=== PATIENT | male | born 1975 | race Hispanic/Latino ===

== ENCOUNTER 2017-01-31 07:19 | Inpatient (IN) | payer OTHER, MEDICAID ==
[2017-01-31] MEDS ORDERED: Adacel (T-DAP) 0.5 ML VIAL ONE (07:29)
[2017-01-31] MEDS ORDERED: CEFAZOLIN/Water 2 GM/20 ML SYRINGE ONE (07:29)
[2017-01-31] MEDS ORDERED: Propofol 1,000 MG/100 ML VIAL IV ONE ×2 (07:34→08:30)
[2017-01-31 07:39] LABS: #Basophils 0.1 thou/uL (0.0-0.2); #Eosinphils 0.2 thou/uL (0.0-0.7); #Monocytes 0.5 thou/uL (0.11-0.59); #Neutrophils 9.1 thou/uL (1.40-6.50); %Eosinophils 1.5 % (0.0-10.0); %Lymphocytes 16.4 % (21.0-51.0); %Monocytes 4.5 % (0.0-10.0); %Neutrophils 76.6 % (42.0-75.0); Hemoglobin 15.5 g/dL (14.0-18.0); Mean Corpuscular HGB CONC 36.6 g/dL (32.0-36.0); Mean Corpuscular Hemoglobin 34.9 pg (27.0-31.0); Mean Corpuscular Volume 95.4 fl (80.0-94.0); Mean Platelet Volume 6.2 fL (7.4-10.4); Platelet Count 289 thou/uL (130-400); RBC Distribution Width 11.1 % (11.5-14.5); Red Blood Cell (RBC) Count 4.43 mill/uL (4.70-6.10); White Blood Cell (WBC) Count 11.9 thou/uL (4.8-10.8)
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
[2017-01-31 07:52] LABS: INR-International Normal Ratio 1.1; Prothrombin Time 14.6 SEC (12.0-14.7)
[2017-01-31 07:53] LABS: PTT 25.3 SEC (22.9-36.1)
[2017-01-31 07:55] LABS: ALT (SGPT) 40 U/L (8-55); AST (SGOT) 53 U/L (5-34); Albumin 3.9 g/dL (3.5-5.0); Alkaline Phosphatase 81 U/L (40-150); Anion Gap 17 mmol/L (10-20); BUN (Urea Nitrogen) 8 mg/dL (8.9-20.6); Bilirubin, Total 1.1 mg/dL (0.2-1.2); Calc. Creatinine Clearance 0 mL/min (70-130); Calcium 8.4 mg/dL (7.8-10.44); Carbon Dioxide 15 mmol/L (22-29); Chloride 106 mmol/L (98-107); Estimated GFR-MDRD Greater than 90; Globulin 3.1 g/dL (2.4-3.5); Lipase 25 U/L (8-78); Potassium 3.7 mmol/L (3.5-5.1); Sodium 134 mmol/L (136-145)
[2017-01-31 07:57] LABS: Glucose 182 mg/dL (70-105)
[2017-01-31] MEDS ORDERED: Fentanyl 20 MCG/ML 250 ML ONE (08:49)
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
[2017-01-31] MEDS ORDERED: TETANUS AND DIPHTHERIA TOX/PF 0.5 ML DISP.SYRIN IM ONE (08:51)
[2017-01-31] MEDS ORDERED: Dextrose 50% Abboject 50 ML SYRINGE SLOW IVP PRN (08:51)
[2017-01-31] MEDS ORDERED: Dextrose 5% in Water 1,000 ML IV PRN (08:51)
[2017-01-31] MEDS ORDERED: Ondansetron HCl/PF 4 MG/2 ML Vial IVP PRN (08:51)
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
[2017-01-31 09:04] LABS: Base Excess (BEa) -6.1 mEq/L (0 (+/-) 2.5); CO2 Tension 31.3 mmHg (35.0-45.0); Calcium, Ionized 1.1 mmol/L (1.12-1.30); Hematocrit-ABG 37.3 % (42.0-52.0); Hemoglobin (Hb) 12.4 g/dL (14.0-18.0); O2 Tension (PaO2) 129.2 mmHg (80.0-100.0); Puncture Site RB; pH, Arterial 7.38 (7.35-7.45)
[2017-01-31 09:05] LABS: ALV-art Gradient 24.995 (0-20)
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
[2017-01-31] MEDS ORDERED: Lidocaine 1% (PF) 30 ML VIAL ONE (09:20)
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
[2017-01-31] MEDS ORDERED: Sedation Protocol FS ONE (09:50)
[2017-01-31] MEDS ORDERED: Albumin 5% 500 ML ONE (09:51)
[2017-01-31] MEDS ORDERED: Fentanyl 20 MCG/ML 250 ML IVPB SCH (10:00)
[2017-01-31] MEDS ORDERED: DISCONTINUE PREVIOUS NARCOTIC PAIN MEDICATIONS AND BENZODIAZEPINES FS SCH (10:00)
[2017-01-31] MEDS ORDERED: Lorazepam 2 MG/ML VIAL SLOW IVP PRN (10:00)
[2017-01-31] MEDS: HumaLOG 300 UNITS/3 ML VIAL SC PRN (13:29)
[2017-01-31] MEDS: Famotidine/PF 20 mg/2ml Vial SLOW IVP SCH ×2 (13:29→20:30)
[2017-01-31] MEDS: Sodium Chloride 0.9% 1,000 ML IV SCH (13:35)
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
--- NOTE | 2017-01-31 15:34 | MRI ---
MRI CERVICAL SPINE WITHOUT IV CONTRAST: Date: 01/31/17 Multiplanar, multisequential images of cervical spine obtained. HISTORY: CT scan on 01/31/17 described fracture of the inferior facet on the left at C1. FINDINGS: The cervical vertebra show normal height and alignment on MRI. The disc spaces are normally maintain ed. There is no evidence of edema within the cervical vertebra below C1. Evaluation of C1 shows some minimal changes of edema along the lateral mass of C1 on the left. The subtle signal change may or may not be significant. There is no evidence of edema within the surrounding ligaments. Anterior longitudinal ligament, post erior longitudinal ligament, and interspinous ligaments are unremarkable. No edema. No edema in the spinous processes identified. There is no evidence of disc bulge or disc protrusion. The cervical cord signal is normal. IMPRESSION: 1. Questionable signal changes in the lateral mass of C1 on the left at the site of the previously described fracture. 2. No other evidence of osseous edema. No evidence of ligamentous or soft tissue edema seen. Cervic al spine otherwise unremarkable. POS: [facility]
[2017-01-31] MEDS ORDERED: ISOVUE-370 76%-LOCM 1 ML ONE (15:41)
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
[2017-01-31 15:55] LABS: #Monocytes 0.9 thou/uL (0.11-0.59); #Neutrophils 10.2 thou/uL (1.40-6.50); %Basophils 0.3 % (0.0-1.0); %Eosinophils 0.1 % (0.0-10.0); %Lymphocytes 8.5 % (21.0-51.0); %Monocytes 7.3 % (0.0-10.0); %Neutrophils 83.8 % (42.0-75.0); Hemoglobin 11.1 g/dL (14.0-18.0); Mean Corpuscular HGB CONC 35.4 g/dL (32.0-36.0); Mean Corpuscular Hemoglobin 34.3 pg (27.0-31.0); Mean Corpuscular Volume 97.1 fl (80.0-94.0); Mean Platelet Volume 6.4 fL (7.4-10.4); Platelet Count 220 thou/uL (130-400); RBC Distribution Width 11.1 % (11.5-14.5); Red Blood Cell (RBC) Count 3.23 mill/uL (4.70-6.10); White Blood Cell (WBC) Count 12.2 thou/uL (4.8-10.8)
[2017-01-31 16:03] LABS: Anion Gap 16 mmol/L (10-20); BUN (Urea Nitrogen) 8 mg/dL (8.9-20.6); Calc. Creatinine Clearance 117 mL/min (70-130); Calcium 8.2 mg/dL (7.8-10.44); Carbon Dioxide 17 mmol/L (22-29); Chloride 113 mmol/L (98-107); Estimated GFR-MDRD Greater than 90; Glucose 101 mg/dL (70-105); Magnesium 2.1 mg/dL (1.6-2.6); Phosphorus 2.8 mg/dL (2.3-4.7); Potassium 3.9 mmol/L (3.5-5.1); Sodium 142 mmol/L (136-145)
[2017-01-31] MEDS ORDERED: Acetaminophen 325 MG/10.15 ML UDCUP PO PRN (16:59)
[2017-01-31] MEDS: Cefepime 2 GM, Syringe 2.5 ML in Sterile Water 10 ML SLOW IVP SCH (18:09)
[2017-01-31] MEDS: Vancomycin HCl 1 GM in Premix Bag 1 BAG IVPB SCH (20:30)
[2017-01-31] MEDS: Acetaminophen 650 MG/20.3 ML UDCUP PO PRN (20:31)
[2017-01-31] MEDS ORDERED: FLU VACC QS2017-18 36 mo. & older 0.5 ML SYRINGE IM ONE (21:00)
[2017-01-31] MEDS ORDERED: Cefepime 2 GM in Sodium Chloride 0.9% 100 ML IVPB SCH (21:00)
[2017-02-01] MEDS: Vancomycin HCl 1 GM in Premix Bag 1 BAG IVPB SCH ×3 (03:32→21:15)
[2017-02-01] MEDS: Acetaminophen 650 MG/20.3 ML UDCUP PO PRN ×3 (03:40→22:06)
[2017-02-01] MEDS: Sodium Chloride 0.9% 1,000 ML IV SCH (03:40)
[2017-02-01 04:43] LABS: #Basophils 0.1 thou/uL (0.0-0.2); #Lymphocytes 1.7 thou/uL (1.20-3.40); #Monocytes 0.8 thou/uL (0.11-0.59); #Neutrophils 4.8 thou/uL (1.40-6.50); %Basophils 0.8 % (0.0-1.0); %Eosinophils 0.4 % (0.0-10.0); %Lymphocytes 22.4 % (21.0-51.0); %Monocytes 11.1 % (0.0-10.0); %Neutrophils 65.3 % (42.0-75.0); Mean Corpuscular HGB CONC 35.4 g/dL (32.0-36.0); Mean Corpuscular Hemoglobin 34.2 pg (27.0-31.0); Mean Corpuscular Volume 96.6 fl (80.0-94.0); Mean Platelet Volume 6.6 fL (7.4-10.4); Platelet Count 165 thou/uL (130-400); Red Blood Cell (RBC) Count 2.62 mill/uL (4.70-6.10); White Blood Cell (WBC) Count 7.4 thou/uL (4.8-10.8)
[2017-02-01 05:14] LABS: ALT (SGPT) 28 U/L (8-55); AST (SGOT) 58 U/L (5-34); Albumin 3.5 g/dL (3.5-5.0); Alkaline Phosphatase 38 U/L (40-150); Anion Gap 12 mmol/L (10-20); BUN (Urea Nitrogen) 11 mg/dL (8.9-20.6); Bilirubin, Total 1.4 mg/dL (0.2-1.2); Calc. Creatinine Clearance 105 mL/min (70-130); Calcium 7.9 mg/dL (7.8-10.44); Carbon Dioxide 20 mmol/L (22-29); Chloride 112 mmol/L (98-107); Estimated GFR-MDRD Greater than 90; Globulin 2.2 g/dL (2.4-3.5); Glucose 115 mg/dL (70-105); Phosphorus 3.5 mg/dL (2.3-4.7); Potassium 3.4 mmol/L (3.5-5.1); Protein, Total 5.7 g/dL (6.0-8.3); Sodium 141 mmol/L (136-145)
[2017-02-01] MEDS: Cefepime 2 GM, Syringe 2.5 ML in Sterile Water 10 ML SLOW IVP SCH ×3 (05:19→22:05)
[2017-02-01] MEDS ORDERED: Potassium Chloride 40 MEQ in Sodium Chloride 0.9% 500 ML IVPB SCH (07:00)
[2017-02-01] MEDS: Lactated Ringer's 1,000 ML IV SCH ×2 (07:46→21:14)
[2017-02-01] MEDS: Pantoprazole 40 MG VIAL IVP SCH (09:16)
--- NOTE | 2017-02-01 09:32 | PRG ---
DATE OF SERVICE: 02/01/2017 SERVICE: Pulmonary Medicine. INTERVAL HISTORY: The patient is doing fine from a respiratory standpoint. He is on room air. Otherwise, there have been no events overnight. His neurologic status has been essentially stable. Neurosurgery is following. The patient is going down for surgery today. PHYSICAL EXAMINATION: VITAL SIGNS: T-max 102.5 with current temperature of 101.4, pulse 117, blood pressure 104/70, respirations 20, saturation 100% on 21% FIO2 and PEEP of 5. GENERAL: The patient is intubated and sedated. HEENT: Normocephalic. There are multiple trauma present. Sclerae white. There is conjunctival hemorrhage. Mucosa is pink otherwise. Oral and nasal mucosa is moist. HEART: Tachycardic. Regular. ABDOMEN: Soft, nontender, nondistended, bowel sounds positive. LUNGS: Good air entry bilaterally with no prolonged expiratory phase, wheezing , rhonchi, or crackles. MUSCULOSKELETAL: No cyanosis or clubbing. There is no pitting in the bilateral lower extremities. NEUROLOGIC: Unchanged compared to yesterday. LABORATORY DATA: WBC 7.4, hemoglobin 9.0, platelets 165,000. INR 1.1. Potassium 3.4, which has been replaced. Basic metabolic profile is otherwise unremarkable. Total bilirubin 1.4 and gently up trending. Magnesium and phosphorus fall within normal limits. AST and ALT are roughly stable. Blood cultures x2 are unremarkable. IMAGING: Chest x-ray demonstrates stable lines and tubes. There is no acute cardiopulmonary abnormality identified. Endotracheal tube remains in good position with intracatheter coursing low level of the diaphragm. ASSESSMENT: 1. Respiratory failure secondary to inability to protect airway. 2. Subarachnoid hemorrhage. 3. Subdural hematomas. 4. Multiple basilar fractures with pneumocephalus. 5. Pulmonary contusion, minimal. 6. Possible globus injury. PLAN: We will continue to follow neurologic status very closely. If he decompensates, stat CT scan will be considered as there is ventricular extension of the blood from the parenchyma. Pulmonary/Critical Care will continue to follow. I have made some small adjustments to the ventilator to maximize comfort and minimize dyssynchrony: I will initiate tube feeds after surgery today. Once his neurologic status allows, extubation will be considered. In the meantime, we will minimize sedation. [facility]ENT[facility]assy
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
[2017-02-01] MEDS ORDERED: Midazolam HCl 2 mg/2 ml Vial ONE (13:14)
[2017-02-01] MEDS ORDERED: Fentanyl 100 MCG/2 ML VIAL ONE (13:14)
[2017-02-01] MEDS ORDERED: Oxymetazoline HCl 0.05% ( 15 ML ) ONE (13:20)
[2017-02-01] MEDS ORDERED: Lidocaine 1% w/Epinephrine 1:200K 30 ML VIAL ONE (13:20)
[2017-02-01] MEDS ORDERED: Vecuronium 10 MG VIAL ONE (13:52)
[2017-02-01] MEDS ORDERED: PHENYLEPHRINE-NS 100 MCG/ML 10 ML SYRINGE ONE (13:52)
[2017-02-01] MEDS ORDERED: ePHEDrine/0.9% NaCl/PF SYRINGE 50 mg/10 ml ONE (13:52)
[2017-02-01] MEDS ORDERED: Lidocaine 2% w/Epi 1:100K 1.7 ML VIAL (Dental) ONE (13:57)
[2017-02-01] MEDS ORDERED: Chlorhexidine Gluconate 15 ML UDCUP SSP ONE (14:00)
[2017-02-01] MEDS ORDERED: Phenylephrine 10 MG/NS 250 ML 250 ML ONE (14:34)
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
[2017-02-01] MEDS ORDERED: Gentamicin Ophth Ointment 0.3% 3.5 gm Tube ONE (15:35)
[2017-02-01] MEDS ORDERED: Bacitracin Zinc Ointment 30 gm TUBE ONE (15:35)
[2017-02-01] MEDS ORDERED: Phenylephrine 10 MG/NS 250 ML 250 ML IVPB SCH (17:45)
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
[2017-02-01 19:41] LABS: Vancomycin, Trough 18.1 ug/mL
[2017-02-01] MEDS: HumaLOG 300 UNITS/3 ML VIAL SC PRN (22:18)
[2017-02-02 04:38] LABS: #Eosinphils 0.1 thou/uL (0.0-0.7); #Lymphocytes 1.3 thou/uL (1.20-3.40); #Monocytes 0.7 thou/uL (0.11-0.59); #Neutrophils 4.8 thou/uL (1.40-6.50); %Basophils 0.7 % (0.0-1.0); %Eosinophils 1.9 % (0.0-10.0); %Lymphocytes 18.4 % (21.0-51.0); %Monocytes 9.5 % (0.0-10.0); %Neutrophils 69.5 % (42.0-75.0); Hemoglobin 7.8 g/dL (14.0-18.0); Mean Corpuscular HGB CONC 34.5 g/dL (32.0-36.0); Mean Corpuscular Volume 98.5 fl (80.0-94.0); Mean Platelet Volume 6.5 fL (7.4-10.4); Platelet Count 128 thou/uL (130-400); RBC Distribution Width 10.5 % (11.5-14.5); Red Blood Cell (RBC) Count 2.29 mill/uL (4.70-6.10); White Blood Cell (WBC) Count 6.9 thou/uL (4.8-10.8)
[2017-02-02] MEDS: Lactated Ringer's 1,000 ML IV SCH (04:41)
[2017-02-02] MEDS: Vancomycin HCl 1 GM in Premix Bag 1 BAG IVPB SCH ×3 (04:41→20:49)
[2017-02-02] MEDS: Propofol 1,000 MG/100 ML VIAL IV PRN (04:44)
[2017-02-02 04:50] LABS: Anion Gap 13 mmol/L (10-20); BUN (Urea Nitrogen) 8 mg/dL (8.9-20.6); Calc. Creatinine Clearance 115 mL/min (70-130); Calcium 7.7 mg/dL (7.8-10.44); Carbon Dioxide 20 mmol/L (22-29); Chloride 114 mmol/L (98-107); Estimated GFR-MDRD Greater than 90; Glucose 106 mg/dL (70-105); Potassium 3.9 mmol/L (3.5-5.1); Sodium 143 mmol/L (136-145)
[2017-02-02] MEDS: Chlorhexidine Gluconate 15 ML UDCUP SSP SCH ×2 (09:02→20:50)
[2017-02-02] MEDS: Pantoprazole 40 MG VIAL IVP SCH (09:02)
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
[2017-02-02] MEDS: Cefepime 2 GM, Syringe 2.5 ML in Sterile Water 10 ML SLOW IVP SCH ×2 (10:57→20:49)
[2017-02-02] MEDS: Sodium Chloride 0.45% 1,000 ML IV SCH (10:58)
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
[2017-02-02] MEDS: Acetaminophen 650 MG/20.3 ML UDCUP PO PRN ×2 (17:33→23:07)
[2017-02-02 19:23] LABS: Vancomycin, Trough 17.3 ug/mL
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
[2017-02-02] MEDS ORDERED: clonazePAM 0.5 MG TAB PER TUBE SCH (20:30)
[2017-02-02] MEDS: Gentamicin Ophth Ointment 0.3% 3.5 gm Tube EA EYE PRN (20:51)
[2017-02-02] MEDS: Bacitracin Zinc 1 Packet TOP PRN (21:04)
[2017-02-02] MEDS: HumaLOG 300 UNITS/3 ML VIAL SC PRN (23:32)
[2017-02-03] MEDS: Vancomycin HCl 1 GM in Premix Bag 1 BAG IVPB SCH ×3 (04:30→20:54)
[2017-02-03] MEDS: Sodium Chloride 0.45% 1,000 ML IV SCH (04:30)
[2017-02-03] MEDS: Propofol 1,000 MG/100 ML VIAL IV PRN ×3 (04:30→20:44)
[2017-02-03 05:00] LABS: Anion Gap 12 mmol/L (10-20); BUN (Urea Nitrogen) 7 mg/dL (8.9-20.6); Calc. Creatinine Clearance 124 mL/min (70-130); Calcium 8.3 mg/dL (7.8-10.44); Carbon Dioxide 22 mmol/L (22-29); Chloride 113 mmol/L (98-107); Estimated GFR-MDRD Greater than 90; Glucose 121 mg/dL (70-105); Potassium 3.5 mmol/L (3.5-5.1); Sodium 143 mmol/L (136-145)
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
[2017-02-03] MEDS: Acetaminophen 650 MG/20.3 ML UDCUP PO PRN ×3 (07:49→21:01)
[2017-02-03 08:10] LABS: Bilirubin Negative (Negative); Blood, Urine Small (Negative); Clarity CLEAR (Clear); Glucose, Urine (Dipstick) Negative (Negative); Leukocyte Negative (Negative); Nitrite Negative (Negative); Protein, Urine (Dipstick) Negative (Neg-Trace); Specific Gravity, Urine 1.015 (1.002-1.036); Urobilinogen > or = 8.0 mg/dL (0.2-1.0)
[2017-02-03 08:12] LABS: Bacteria/HPF None Seen HPF (None Seen); Hyaline Casts/LPF 0-3 HYALINE CAST LPF (0-3 Hyaline); RBC/HPF 0-3 HPF (0-3); Squamous Epithelial None Seen HPF (0-3); WBC/HPF 0-3 HPF (0-3)
[2017-02-03] MEDS ORDERED: Bisacodyl 10 MG SUPP PR SCH (08:30)
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
[2017-02-03] MEDS: Pantoprazole 40 MG VIAL IVP SCH (09:09)
[2017-02-03] MEDS: Bacitracin Zinc 1 Packet TOP PRN (09:10)
[2017-02-03] MEDS: Chlorhexidine Gluconate 15 ML UDCUP SSP SCH ×2 (09:10→20:53)
[2017-02-03] MEDS: Gentamicin Ophth Ointment 0.3% 3.5 gm Tube EA EYE PRN (09:10)
[2017-02-03] MEDS: Cefepime 2 GM, Syringe 2.5 ML in Sterile Water 10 ML SLOW IVP SCH ×2 (09:11→23:44)
[2017-02-03] MEDS ORDERED: Potassium Chloride 40 MEQ in Sodium Chloride 0.9% 250 ML 250 ML IVPB SCH (09:15)
[2017-02-03] MEDS: Senokot S 8.6-50 MG TAB PO SCH ×2 (10:06→20:53)
[2017-02-03] MEDS: Polyethylene Glycol 3350 17 GM Packet PER TUBE SCH (10:06)
[2017-02-03] MEDS: HumaLOG 300 UNITS/3 ML VIAL SC PRN ×3 (10:46→22:20)
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
--- NOTE | 2017-02-03 19:03 | PRG ---
DATE OF SERVICE: 02/03/2017 SERVICE: Pulmonary Medicine. INTERVAL HISTORY: The patient is doing fine from a respiratory standpoint. Cardiovascular, he is intact. He cannot provide any additional elements of the history. Whenever we hold sedation, he moves his lower extremities spontaneously as well as right extremities. He does have a little less movement in the left upper extremity. That being said, he is not following any commands. I can safely extubate him because of his multiple cranial facial fractures. Reintubation could prove difficult. As such, he will remain in his condition for the next 48 hours. PHYSICAL EXAMINATION: VITAL SIGNS: T-max 101.1, pulse 125, blood pressure 140/72, respirations 16, saturation 100% on room air. GENERAL: The patient is intubated. He is on mild sedation, but otherwise, remains encephalopathic from his multiple head injuries. LUNGS: Decent air entry with no prolonged expiratory phase, wheezing, rhonchi or crackles. HEART: Regular. ABDOMEN: Soft, nontender, nondistended. Bowel sounds are positive. MUSCULOSKELETAL: No cyanosis or clubbing. There is no pitting in the bilateral lower extremities. LABORATORY DATA: Hemoglobin 8.0. Basic metabolic profile was essentially unremarkable with sodium of 143. Chloride 113. Creatinine 0.74 and roughly stable. One out of two blood cultures is growing micrococcus feces. ASSESSMENT: 1. Respiratory failure secondary to inability to protect airway. 2. Subarachnoid hemorrhage. 3. Subdural hematomas. 4. Intraparenchymal hemorrhage, multiple with intraventricular extension. 5. Multiple bibasilar fractures with pneumocephalus. 6. Pulmonary contusion, insignificant. 7. Possible globe injury of the left eye. PLAN: I will continue supportive care. I will keep him intubated for the next 48 hours. If he fails to make any neurological progression/improvement, tracheostomy will be considered. I will initiate Seroquel and Klonopin scheduled twice daily as well as nebulized medications. Critical care time: 30 minutes. MTDD
[2017-02-03] MEDS: clonazePAM 0.5 MG TAB PO SCH (20:53)
[2017-02-04] MEDS: Ibuprofen 100 MG/5 ML UDCUP PO PRN ×2 (02:14→15:38)
[2017-02-04 03:42] LABS: Vancomycin, Trough 14.7 ug/mL
[2017-02-04 03:45] LABS: Anion Gap 10 mmol/L (10-20); BUN (Urea Nitrogen) 8 mg/dL (8.9-20.6); Calc. Creatinine Clearance 134 mL/min (70-130); Calcium 8.2 mg/dL (7.8-10.44); Carbon Dioxide 22 mmol/L (22-29); Chloride 110 mmol/L (98-107); Estimated GFR-MDRD Greater than 90; Glucose 174 mg/dL (70-105); Magnesium 1.6 mg/dL (1.6-2.6); Phosphorus 2.8 mg/dL (2.3-4.7); Potassium 3.3 mmol/L (3.5-5.1); Sodium 139 mmol/L (136-145)
[2017-02-04] MEDS: Sodium Chloride 0.45% 1,000 ML IV SCH ×2 (03:59→23:03)
[2017-02-04] MEDS: Propofol 1,000 MG/100 ML VIAL IV PRN ×2 (04:13→17:26)
[2017-02-04] MEDS: HumaLOG 300 UNITS/3 ML VIAL SC PRN ×3 (04:14→22:16)
[2017-02-04] MEDS: Vancomycin HCl 1 GM in Premix Bag 1 BAG IVPB SCH (04:14)
[2017-02-04] MEDS ORDERED: Sodium Chloride 0.9% 15 ML NEB ONE (04:16)
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
[2017-02-04] MEDS ORDERED: Magnesium 2 GM/NS 0.9% 100 ML 2 GM in Premix Bag 1 BAG IVPB SCH (08:45)
[2017-02-04 08:49] LABS: #Eosinphils 0.3 thou/uL (0.0-0.7); #Lymphocytes 0.7 thou/uL (1.20-3.40); #Monocytes 0.3 thou/uL (0.11-0.59); #Neutrophils 2.4 thou/uL (1.40-6.50); %Basophils 0.2 % (0.0-1.0); %Eosinophils 7.4 % (0.0-10.0); %Monocytes 9.1 % (0.0-10.0); %Neutrophils 64.3 % (42.0-75.0); Mean Corpuscular Hemoglobin 33.5 pg (27.0-31.0); Mean Corpuscular Volume 95.8 fl (80.0-94.0); Mean Platelet Volume 6.6 fL (7.4-10.4); Platelet Count 176 thou/uL (130-400); RBC Distribution Width 10.8 % (11.5-14.5); Red Blood Cell (RBC) Count 2.08 mill/uL (4.70-6.10); White Blood Cell (WBC) Count 3.7 thou/uL (4.8-10.8)
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
[2017-02-04] MEDS: Acetaminophen 650 MG/20.3 ML UDCUP PO PRN ×3 (09:20→23:45)
[2017-02-04] MEDS: Pantoprazole 40 MG VIAL IVP SCH (09:21)
[2017-02-04] MEDS: clonazePAM 0.5 MG TAB PO SCH ×2 (09:21→20:52)
[2017-02-04] MEDS: Senokot S 8.6-50 MG TAB PO SCH ×2 (09:21→20:52)
[2017-02-04] MEDS: Polyethylene Glycol 3350 17 GM Packet PER TUBE SCH (09:22)
[2017-02-04] MEDS: Chlorhexidine Gluconate 15 ML UDCUP SSP SCH ×2 (09:22→20:52)
[2017-02-04] MEDS: Cefepime 2 GM, Syringe 2.5 ML in Sterile Water 10 ML SLOW IVP SCH ×2 (09:32→20:59)
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
[2017-02-04] MEDS: Gentamicin Ophth Ointment 0.3% 3.5 gm Tube EA EYE PRN (10:31)
[2017-02-04] MEDS: Bacitracin Zinc 1 Packet TOP PRN (10:31)
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
[2017-02-04] MEDS: Vancomycin HCl 1.25 GM in Sodium Chloride 0.9% 250 ML 250 ML IVPB SCH ×2 (11:35→19:42)
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
[2017-02-05] MEDS: Ibuprofen 100 MG/5 ML UDCUP PO PRN ×2 (01:11→14:39)
[2017-02-05] MEDS: Vancomycin HCl 1.25 GM in Sodium Chloride 0.9% 250 ML 250 ML IVPB SCH ×2 (03:36→13:33)
[2017-02-05] MEDS: Propofol 1,000 MG/100 ML VIAL IV PRN ×2 (03:43→14:16)
[2017-02-05] MEDS: HumaLOG 300 UNITS/3 ML VIAL SC PRN ×2 (03:43→22:34)
[2017-02-05 04:58] LABS: Anion Gap 12 mmol/L (10-20); BUN (Urea Nitrogen) 11 mg/dL (8.9-20.6); Calc. Creatinine Clearance 137 mL/min (70-130); Calcium 8.5 mg/dL (7.8-10.44); Carbon Dioxide 22 mmol/L (22-29); Chloride 108 mmol/L (98-107); Estimated GFR-MDRD Greater than 90; Glucose 161 mg/dL (70-105); Potassium 4.2 mmol/L (3.5-5.1); Sodium 138 mmol/L (136-145)
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
[2017-02-05] MEDS: Polyethylene Glycol 3350 17 GM Packet PER TUBE SCH (07:54)
[2017-02-05] MEDS: clonazePAM 0.5 MG TAB PO SCH ×2 (07:55→20:12)
[2017-02-05] MEDS: Pantoprazole 40 MG GRANULES PACKET PER TUBE SCH (07:55)
[2017-02-05] MEDS: Senokot S 8.6-50 MG TAB PO SCH ×2 (07:55→20:12)
[2017-02-05] MEDS: Chlorhexidine Gluconate 15 ML UDCUP SSP SCH ×2 (07:55→20:12)
[2017-02-05] MEDS: Cefepime 2 GM, Syringe 2.5 ML in Sterile Water 10 ML SLOW IVP SCH ×2 (07:57→20:12)
[2017-02-05] MEDS: Bacitracin Zinc 1 Packet TOP PRN (07:58)
[2017-02-05] MEDS: Gentamicin Ophth Ointment 0.3% 3.5 gm Tube EA EYE PRN (07:58)
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
[2017-02-05 12:34] LABS: Vancomycin, Trough 14.3 ug/mL
[2017-02-05] MEDS: Sodium Chloride 0.45% 1,000 ML IV SCH (14:58)
[2017-02-05] MEDS: Acetaminophen 650 MG/20.3 ML UDCUP PO PRN (16:33)
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
--- NOTE | 2017-02-05 18:05 | PRG ---
DATE OF SERVICE: 02/05/2017 Please see Raymundo Gagnon PA-C, note for details. Mr. Barclay is still very irritated when the sedation is weaned, he is going to require long-term airway support and protection given his significant head injury. My plan would be a tracheostomy and feeding tube placement tomorrow. Disposition will be d ifficult, given his status; however, tracheostomy, PEG tube will allow us to have more options for th at if something can be arranged.
[2017-02-05] MEDS: Vancomycin HCl 1.5 GM in Sodium Chloride 0.9% 250 ML 300 ML IVPB SCH (19:39)
[2017-02-06] MEDS: Propofol 1,000 MG/100 ML VIAL IV PRN (01:33)
[2017-02-06] MEDS: Sodium Chloride 0.45% 1,000 ML IV SCH ×2 (01:38→16:25)
[2017-02-06] MEDS: Vancomycin HCl 1.5 GM in Sodium Chloride 0.9% 250 ML 300 ML IVPB SCH ×3 (03:13→21:14)
[2017-02-06 04:45] LABS: #Basophils 0.1 thou/uL (0.0-0.2); #Eosinphils 0.3 thou/uL (0.0-0.7); #Lymphocytes 1.1 thou/uL (1.20-3.40); #Neutrophils 4.6 thou/uL (1.40-6.50); %Basophils 0.7 % (0.0-1.0); %Eosinophils 4.2 % (0.0-10.0); %Monocytes 14.7 % (0.0-10.0); %Neutrophils 65.4 % (42.0-75.0); Hemoglobin 7.2 g/dL (14.0-18.0); Mean Corpuscular HGB CONC 34.4 g/dL (32.0-36.0); Mean Corpuscular Hemoglobin 33.5 pg (27.0-31.0); Mean Corpuscular Volume 97.1 fl (80.0-94.0); Mean Platelet Volume 6.7 fL (7.4-10.4); Platelet Count 312 thou/uL (130-400); RBC Distribution Width 11.6 % (11.5-14.5); Red Blood Cell (RBC) Count 2.14 mill/uL (4.70-6.10); White Blood Cell (WBC) Count 7.1 thou/uL (4.8-10.8)
[2017-02-06 04:57] LABS: Anion Gap 14 mmol/L (10-20); BUN (Urea Nitrogen) 11 mg/dL (8.9-20.6); Calc. Creatinine Clearance 147 mL/min (70-130); Calcium 8.5 mg/dL (7.8-10.44); Carbon Dioxide 21 mmol/L (22-29); Chloride 105 mmol/L (98-107); Estimated GFR-MDRD Greater than 90; Glucose 117 mg/dL (70-105); Potassium 4.4 mmol/L (3.5-5.1); Sodium 136 mmol/L (136-145)
[2017-02-06] MEDS: Ibuprofen 100 MG/5 ML UDCUP PO PRN (06:17)
[2017-02-06] MEDS: Cefepime 2 GM, Syringe 2.5 ML in Sterile Water 10 ML SLOW IVP SCH ×2 (09:07→20:24)
[2017-02-06] MEDS: Chlorhexidine Gluconate 15 ML UDCUP SSP SCH ×2 (09:07→20:25)
[2017-02-06] MEDS ORDERED: Bupivacaine/Epinephrine 0.25% 30 ML VIAL ONE (09:40)
[2017-02-06] MEDS ORDERED: Midazolam HCl 5 mg/5 ml Vial ONE (09:41)
[2017-02-06] MEDS ORDERED: Fentanyl 250 MCG/5 ML VIAL ONE (09:41)
[2017-02-06] MEDS ORDERED: Promethazine HCl 25 MG/ML VIAL ONE (09:41)
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
[2017-02-06] MEDS ORDERED: Labetalol HCl 100 MG/20 ML SYR ONE (10:13)
[2017-02-06] MEDS ORDERED: Ondansetron HCl/PF 4 MG/2 ML Vial ONE (10:13)
[2017-02-06] MEDS ORDERED: PHENYLEPHRINE-NS 100 MCG/ML 10 ML SYRINGE ONE (10:13)
--- NOTE | 2017-02-06 10:25 | PRG ---
DATE OF SERVICE: 02/06/2017 SERVICE: Pulmonary Medicine. INTERVAL HISTORY: The patient is doing great from a respiratory standpoint. His heart is doing fine. He is a little tachycardic today. Otherwise, there has been no interval change to his condition. His neurologic status has yet to improve. He does require intermittent sedation, because he thrashes about the bed without it. That being said, during good long sedation holidays, he is not following any commands. He has some purposeful movements of the right upper extremity and bilateral lower extremities. That being said, he is still not moving that left arm nearly as much. PHYSICAL EXAMINATION: VITAL SIGNS: T-max 102.9, pulse 102, blood pressure 138/75, respirations 12, saturation 99% on 21% FiO2 and PEEP of 5. GENERAL: The patient is intubated and requires a little sedation, but he is still encephalopathic. LUNGS: Decent air entry with no prolonged expiratory phase, wheezing, rhonchi, or crackles. HEART: Normal rate, regular. ABDOMEN: Soft, nontender, nondistended. Bowel sounds positive. MUSCULOSKELETAL: No cyanosis or clubbing. There is no pitting in the bilateral lower extremities. NEUROLOGIC: Grossly nonfocal. GENITOURINARY: Cortes catheter in place. LABORATORY DATA: WBC 7.1, hemoglobin 7.2. Platelets 312,000. Basic metabolic profile is completely unremarkable. Glucose is 131. Vancomycin trough 14.3. Respiratory culture, urine culture, and 1/2 blood cultures is negative. The other blood culture is growing likely contamination. ASSESSMENT: 1. Respiratory failure, secondary to inability to protect airway. 2. Subarachnoid hemorrhage. 3. Subdural hematomas. 4. Intraparenchymal hemorrhage with small intraventricular extension. 5. Basilar fractures, previously resulting in pneumocephalus, which has resolved. PLAN: Pulmonary Critical Care will continue to follow while the patient remains in-house. We will continue supportive care. He can go down for a PEG tube and tracheostomy. For the time being, we will hold off on an IVC filter placement. The patient remains on room air. His heart remains strong, and my suspicion is he has got plenty of reserve if necessary for a small clot. In 1 week, we will be able to provide him with prophylactic anticoagulation. Critical care time: 30 minutes. [facility]
--- NOTE | 2017-02-06 12:13 | RAD ---
CHEST ONE VIEW: History: Tracheostomy replacement. Comparison: 02-04-17 FINDINGS: Tracheostomy tube is new and in good position. Lungs are hypoinflated. Cardiac silhouette and mediast inal contours are within normal limits. Enteric tube has been removed. IMPRESSION: Tracheostomy tube placement without complication. POS: FREDA
[2017-02-06] MEDS: Pantoprazole 40 MG GRANULES PACKET PER TUBE SCH (13:32)
[2017-02-06] MEDS: Senokot S 8.6-50 MG TAB PO SCH ×2 (13:32→20:25)
[2017-02-06] MEDS: Polyethylene Glycol 3350 17 GM Packet PER TUBE SCH (13:32)
[2017-02-06] MEDS: clonazePAM 0.5 MG TAB PO SCH ×2 (13:33→20:25)
[2017-02-06] MEDS: Bisacodyl 10 MG SUPP PR SCH (13:33)
[2017-02-06] MEDS: Fentanyl 100 MCG/2 ML VIAL SLOW IVP PRN ×3 (14:53→19:43)
--- NOTE | 2017-02-06 15:04 | PRG ---
DATE OF SERVICE: 02/06/2017 SUBJECTIVE: I came to see Mr. Barclay today. He is down getting his tracheostomy and PEG tube place ment. I have recommended IVC filter as I do not think it is safe to anticoagulate him with pharmacol ogic DVT prophylaxis given the size of his hemorrhagic contusions.
[2017-02-06] MEDS: Acetaminophen 650 MG/20.3 ML UDCUP PO PRN (16:27)
[2017-02-06] MEDS: Bacitracin Zinc 1 Packet TOP PRN (16:27)
[2017-02-06 21:01] LABS: Vancomycin, Trough 17.5 ug/mL
[2017-02-07] MEDS: Acetaminophen 650 MG/20.3 ML UDCUP PO PRN ×2 (00:04→12:21)
[2017-02-07] MEDS: Ibuprofen 100 MG/5 ML UDCUP PO PRN ×2 (00:08→12:55)
[2017-02-07] MEDS: Vancomycin HCl 1.5 GM in Sodium Chloride 0.9% 250 ML 300 ML IVPB SCH ×3 (03:10→20:31)
[2017-02-07] MEDS: Fentanyl 100 MCG/2 ML VIAL SLOW IVP PRN (06:14)
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
[2017-02-07] MEDS: Bisacodyl 10 MG SUPP PR SCH (08:49)
[2017-02-07] MEDS: Pantoprazole 40 MG GRANULES PACKET PER TUBE SCH (08:51)
[2017-02-07] MEDS: Chlorhexidine Gluconate 15 ML UDCUP SSP SCH ×2 (08:51→20:33)
[2017-02-07] MEDS: Polyethylene Glycol 3350 17 GM Packet PER TUBE SCH (08:51)
[2017-02-07] MEDS: Senokot S 8.6-50 MG TAB PO SCH (08:51)
[2017-02-07] MEDS: clonazePAM 0.5 MG TAB PO SCH ×2 (08:52→20:33)
[2017-02-07] MEDS: Cefepime 2 GM, Syringe 2.5 ML in Sterile Water 10 ML SLOW IVP SCH ×2 (08:57→21:26)
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
[2017-02-07] MEDS: Sodium Chloride 0.45% 1,000 ML IV SCH (09:59)
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
[2017-02-07] MEDS ORDERED: levETIRAcetam In NaCl (Iso-Os) 1,000 MG in Premix Bag 1 BAG IVPB SCH ×2 (16:15)
--- NOTE | 2017-02-07 16:37 | PRG ---
DATE OF SERVICE: 02/07/2017 SUBJECTIVE: No change in Mr. Barclay' status post trach and PEG yesterday. OBJECTIVE: VITAL SIGNS: His pulse remains fast at times in the low 100s, blood pressure 150/77. He remains on the ventilator. ABDOMEN: Soft. PEG tube site is clear, no bleeding from the trachea. ASSESSMENT: Respiratory failure secondary to the traumatic brain injury. PLAN: We will continue to follow and appreciate Dr. Mendoza's assistance with managing his ventilato r.
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
[2017-02-07 19:49] LABS: Vancomycin, Trough 21.6 ug/mL
[2017-02-08] MEDS: Acetaminophen 650 MG/20.3 ML UDCUP PO PRN ×2 (00:50→16:58)
[2017-02-08] MEDS: Ibuprofen 100 MG/5 ML UDCUP PO PRN ×3 (00:50→16:58)
[2017-02-08] MEDS: Vancomycin HCl 1.25 GM in Sodium Chloride 0.9% 250 ML 250 ML IVPB SCH ×3 (04:05→21:25)
[2017-02-08] MEDS: Cefepime 2 GM, Syringe 2.5 ML in Sterile Water 10 ML SLOW IVP SCH ×2 (08:40→22:32)
[2017-02-08] MEDS: Scopolamine 1.5 mg/72 hour Patch TD SCH (08:40)
[2017-02-08] MEDS: Chlorhexidine Gluconate 15 ML UDCUP SSP SCH ×2 (08:40→21:25)
[2017-02-08] MEDS: Pantoprazole 40 MG GRANULES PACKET PER TUBE SCH (08:40)
[2017-02-08] MEDS: Polyethylene Glycol 3350 17 GM Packet PER TUBE SCH (08:41)
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
[2017-02-08] MEDS ORDERED: Dextrose 5% in Water 1,000 ML IV PRN (17:47)
[2017-02-08] MEDS ORDERED: Dextrose 50% Abboject 50 ML SYRINGE SLOW IVP PRN (17:47)
[2017-02-08] MEDS ORDERED: Bacitracin Zinc 1 Packet TOP SCH (18:45)
[2017-02-08] MEDS: clonazePAM 0.5 MG TAB PO SCH (21:25)
[2017-02-09] MEDS: Fentanyl 100 MCG/2 ML VIAL SLOW IVP PRN (01:19)
[2017-02-09] MEDS: Ibuprofen 100 MG/5 ML UDCUP PO PRN ×3 (01:27→20:08)
[2017-02-09] MEDS: Acetaminophen 650 MG/20.3 ML UDCUP PO PRN ×2 (01:27→09:08)
[2017-02-09] MEDS ORDERED: Acetaminophen 650 MG/20.3 ML UDCUP PER TUBE SCH (02:45)
[2017-02-09 03:35] LABS: Anion Gap 11 mmol/L (10-20); BUN (Urea Nitrogen) 15 mg/dL (8.9-20.6); Calc. Creatinine Clearance 141 mL/min (70-130); Calcium 8.3 mg/dL (7.8-10.44); Carbon Dioxide 19 mmol/L (22-29); Chloride 105 mmol/L (98-107); Estimated GFR-MDRD Greater than 90; Glucose 236 mg/dL (70-105); Magnesium 1.7 mg/dL (1.6-2.6); Phosphorus 2.1 mg/dL (2.3-4.7); Potassium 3.2 mmol/L (3.5-5.1); Sodium 132 mmol/L (136-145); Vancomycin, Trough 18.1 ug/mL
[2017-02-09 03:49] LABS: #Basophils 0.1 thou/uL (0.0-0.2); #Eosinphils 0.2 thou/uL (0.0-0.7); #Lymphocytes 0.9 thou/uL (1.20-3.40); #Monocytes 0.8 thou/uL (0.11-0.59); #Neutrophils 6.1 thou/uL (1.40-6.50); %Basophils 0.7 % (0.0-1.0); %Eosinophils 3.1 % (0.0-10.0); %Lymphocytes 11.1 % (21.0-51.0); %Monocytes 9.5 % (0.0-10.0); %Neutrophils 75.7 % (42.0-75.0); Hemoglobin 6.7 g/dL (14.0-18.0); Mean Corpuscular Hemoglobin 31.8 pg (27.0-31.0); Mean Corpuscular Volume 93.5 fl (80.0-94.0); Mean Platelet Volume 6.3 fL (7.4-10.4); Platelet Count 568 thou/uL (130-400); RBC Distribution Width 11.8 % (11.5-14.5); Red Blood Cell (RBC) Count 2.11 mill/uL (4.70-6.10)
[2017-02-09] MEDS ORDERED: Potassium Phosphate 30 MMOL in Sodium Chloride 0.9% 500 ML IVPB SCH (04:00)
[2017-02-09] MEDS ORDERED: Magnesium 2 GM/NS 0.9% 100 ML 2 GM in Premix Bag 1 BAG IVPB SCH (04:00)
[2017-02-09] MEDS: Vancomycin HCl 1.25 GM in Sodium Chloride 0.9% 250 ML 250 ML IVPB SCH ×3 (04:30→20:09)
[2017-02-09] MEDS: HumaLOG 300 UNITS/3 ML VIAL SC PRN (05:48)
[2017-02-09] MEDS: Pantoprazole 40 MG GRANULES PACKET PER TUBE SCH (09:05)
[2017-02-09] MEDS: Chlorhexidine Gluconate 15 ML UDCUP SSP SCH ×2 (09:05→20:10)
[2017-02-09] MEDS: Bacitracin Zinc 1 Packet TOP SCH ×2 (09:05→20:10)
[2017-02-09] MEDS: Cefepime 2 GM, Syringe 2.5 ML in Sterile Water 10 ML SLOW IVP SCH ×2 (09:08→20:10)
--- NOTE | 2017-02-09 09:23 | RAD ---
PORTABLE CHEST: Date: 02/09/17 COMPARISON: 02/06/17 study. HISTORY: Fever. FINDINGS: Heart size appears borderline enlarged. Tracheostomy tube is present. There has been development of r ight parahilar and lower lobe interstitial and alveolar lung changes and left basilar changes. IMPRESSION: 1. Borderline heart size. 2. Development of patchy parenchymal changes in the right hilar region and both lung bases. This cou ld represent an asymmetric edema pattern, but is more likely to represent infiltrative change. POS: [facility]
[2017-02-09 11:21] LABS: Bilirubin Negative (Negative); Blood, Urine Small (Negative); Clarity CLEAR (Clear); Glucose, Urine (Dipstick) Negative (Negative); Leukocyte Negative (Negative); Nitrite Negative (Negative); Protein, Urine (Dipstick) 30 mg/dL (Neg-Trace); Specific Gravity, Urine 1.028 (1.002-1.036); Urobilinogen 0.2 mg/dL (0.2-1.0)
[2017-02-09 11:22] LABS: Bacteria/HPF None Seen HPF (None Seen); Hyaline Casts/LPF 4-6 HYALINE CAST LPF (0-3 Hyaline); Pathc Cast-AUWi Flag 0.81 (0-2.49); Squamous Epithelial 0-3 HPF (0-3); WBC/HPF 0-3 HPF (0-3)
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
[2017-02-09] MEDS: Polyethylene Glycol 3350 17 GM Packet PER TUBE SCH (15:20)
[2017-02-09] MEDS: clonazePAM 0.5 MG TAB PO SCH (20:10)
[2017-02-10] MEDS: Acetaminophen 650 MG/20.3 ML UDCUP PO PRN ×3 (00:25→17:50)
[2017-02-10 03:15] LABS: #Basophils 0.1 thou/uL (0.0-0.2); #Eosinphils 0.3 thou/uL (0.0-0.7); #Lymphocytes 1.1 thou/uL (1.20-3.40); #Monocytes 0.6 thou/uL (0.11-0.59); #Neutrophils 6.1 thou/uL (1.40-6.50); %Basophils 0.8 % (0.0-1.0); %Eosinophils 3.7 % (0.0-10.0); %Lymphocytes 13.8 % (21.0-51.0); %Neutrophils 74.7 % (42.0-75.0); Hemoglobin 8.1 g/dL (14.0-18.0); Mean Corpuscular HGB CONC 33.6 g/dL (32.0-36.0); Mean Corpuscular Hemoglobin 31.3 pg (27.0-31.0); Mean Corpuscular Volume 93.2 fl (80.0-94.0); Mean Platelet Volume 6.1 fL (7.4-10.4); Platelet Count 548 thou/uL (130-400); RBC Distribution Width 12.4 % (11.5-14.5); White Blood Cell (WBC) Count 8.1 thou/uL (4.8-10.8)
[2017-02-10] MEDS: Vancomycin HCl 1.25 GM in Sodium Chloride 0.9% 250 ML 250 ML IVPB SCH ×2 (03:41→12:15)
[2017-02-10 03:51] LABS: Vancomycin, Trough 17.5 ug/mL
[2017-02-10 04:08] LABS: Anion Gap 14 mmol/L (10-20); BUN (Urea Nitrogen) 14 mg/dL (8.9-20.6); Calc. Creatinine Clearance 154 mL/min (70-130); Calcium 8.6 mg/dL (7.8-10.44); Carbon Dioxide 19 mmol/L (22-29); Chloride 109 mmol/L (98-107); Estimated GFR-MDRD Greater than 90; Glucose 141 mg/dL (70-105); Magnesium 2.1 mg/dL (1.6-2.6); Phosphorus 3.2 mg/dL (2.3-4.7); Potassium 3.8 mmol/L (3.5-5.1); Sodium 138 mmol/L (136-145)
[2017-02-10] MEDS: Bacitracin Zinc 1 Packet TOP SCH ×2 (09:11→20:11)
[2017-02-10] MEDS: Pantoprazole 40 MG GRANULES PACKET PER TUBE SCH (09:12)
[2017-02-10] MEDS: Chlorhexidine Gluconate 15 ML UDCUP SSP SCH ×2 (09:21→20:11)
[2017-02-10] MEDS: Cefepime 2 GM, Syringe 2.5 ML in Sterile Water 10 ML SLOW IVP SCH (09:21)
[2017-02-10] MEDS: Polyethylene Glycol 3350 17 GM Packet PER TUBE SCH (09:48)
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
[2017-02-10 11:10] LABS: Vancomycin, Trough 16.6 ug/mL
[2017-02-10] MEDS: Ibuprofen 100 MG/5 ML UDCUP PO PRN ×2 (11:31→19:45)
[2017-02-10] MEDS: HumaLOG 300 UNITS/3 ML VIAL SC PRN ×2 (12:08→17:51)
[2017-02-10] MEDS ORDERED: Metoprolol Tartrate 25 MG TAB PO SCH (13:15)
[2017-02-10] MEDS ORDERED: Lactated Ringer's 1,000 ML IV SCH (13:15)
[2017-02-10] MEDS ORDERED: Furosemide 20 MG/2 ML VIAL SLOW IVP SCH (13:15)
--- NOTE | 2017-02-10 13:15 | PRG ---
DATE OF SERVICE: 02/10/2017 SERVICE: Pulmonary Medicine. INTERVAL HISTORY: The patient is doing fine from a respiratory standpoint. Neurologically, there marie s been no significant change management manager the weekend. He cannot provide any additional elements of the hist ory. Reports no events other than some fevers. PHYSICAL EXAMINATION: VITAL SIGNS: T-max 103, pulse 133, blood pressure 134/87, respirations 30, and saturation 95% on 28% FiO2. HEENT: Normocephalic. Multiple traumas are healing nicely. HEART: Tachycardic. Regular. ABDOMEN: Soft, nontender, nondistended, bowel sounds positive. MUSCULOSKELETAL: No cyanosis or clubbing. No pitting in the bilateral lower extremities. NEUROLOGIC: Grossly nonfocal. LABORATORY DATA: WBC 8.1, hemoglobin 8.1, and platelets 12.4. INR 1.1. Basic metabolic profile is essentially unremarkable except for bicarbonate of 19. Magnesium and phosphorus fall within normal l evels. Blood sugar ranges from 132-173. Culture results are all negative to date. ASSESSMENT: 1. Respiratory failure secondary to inability to protect airway, status post tracheostomy. 2. Subarachnoid hemorrhage. 3. Subdural hematomas. 4. Intraparenchymal hemorrhage, multifocal. 5. Bibasilar skull fractures with previous pneumocephalus, now resolved. 6. Static encephalopathy, evolving. PLAN: The patient is currently stable from a hemodynamic and respiratory perspective. I will add be ta mariam. I will give him 1 liter of fluid because he may be a little on the dry side with his ins ensible losses. At the end of this week, we will initiate prophylactic anticoagulation. Pulmonary o r Critical Care will continue to follow.
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
[2017-02-10] MEDS: Metoprolol Tartrate 25 MG TAB PO SCH (20:12)
[2017-02-11] MEDS: Acetaminophen 650 MG/20.3 ML UDCUP PO PRN ×2 (01:17→08:02)
[2017-02-11] MEDS ORDERED: Norepinephrine 8 MG/0.9% NS 250 ML ONE (02:27)
[2017-02-11 02:47] LABS: Actual Bicarbonate (HCO3a) 13.9 mEq/L (22-26); Base Excess (BEa) -9.7 mEq/L (0 (+/-) 2.5); Calcium, Ionized 1.3 mmol/L (1.12-1.30); Hematocrit-ABG 25.9 % (42.0-52.0); Hemoglobin (Hb) 8.6 g/dL (14.0-18.0); O2 Tension (PaO2) 109.7 mmHg (80.0-100.0)
[2017-02-11 02:48] LABS: CO2 Tension 23.2 mmHg (35.0-45.0); Puncture Site RRA
[2017-02-11 02:59] LABS: Actual Bicarbonate (HCO3a) 14.9 mEq/L (22-26); Base Excess (BEa) -10.6 mEq/L (0 (+/-) 2.5); CO2 Tension 31.3 mmHg (35.0-45.0); Calcium, Ionized 1.1 mmol/L (1.12-1.30); Hematocrit-ABG 21.5 % (42.0-52.0); Hemoglobin (Hb) 7.2 g/dL (14.0-18.0); O2 Tension (PaO2) 110.1 mmHg (80.0-100.0)
[2017-02-11 03:01] LABS: ALV-art Gradient 557.775 (0-20); Puncture Site RRA
--- NOTE | 2017-02-11 03:10 | PDOC.EVN ---
Event Note - Event Note Event Note: Responded to Code Blue called. Patient's SBP dropped from 150's to 40's. ABG showed Bicarb 13.9 and Hg of 8.6. Patient given 1Amp Bicarb and 1 of Epi, and 2 pressure bags running wide open, and labs drawn. SBP responded and pulse maintained. Abdomen rigid, and with repeat ABG Hg dropped to 7.2. Trauma notified and present at bedside and will take over care. Dr. Penaloza present throughout code.
[2017-02-11 03:42] LABS: Hemoglobin 8.2 g/dL (14.0-18.0); INR-International Normal Ratio 1.3; Mean Corpuscular HGB CONC 31.8 g/dL (32.0-36.0); Mean Corpuscular Hemoglobin 30.9 pg (27.0-31.0); Mean Corpuscular Volume 97.4 fl (80.0-94.0); Mean Platelet Volume 6.7 fL (7.4-10.4); Platelet Count 1028 thou/uL (130-400); RBC Distribution Width 12.6 % (11.5-14.5); Red Blood Cell (RBC) Count 2.65 mill/uL (4.70-6.10); White Blood Cell (WBC) Count 18.8 thou/uL (4.8-10.8)
[2017-02-11 03:48] LABS: ALT (SGPT) 53 U/L (8-55); AST (SGOT) 52 U/L (5-34); Albumin 2.8 g/dL (3.5-5.0); Alkaline Phosphatase 198 U/L (40-150); Anion Gap 23 mmol/L (10-20); BUN (Urea Nitrogen) 31 mg/dL (8.9-20.6); Bilirubin, Total 0.7 mg/dL (0.2-1.2); Calc. Creatinine Clearance 69 mL/min (70-130); Calcium 8.9 mg/dL (7.8-10.44); Carbon Dioxide 14 mmol/L (22-29); Chloride 108 mmol/L (98-107); Estimated GFR-MDRD 59; Globulin 3.6 g/dL (2.4-3.5); Glucose 168 mg/dL (70-105); LDH 391 U/L (125-220); Potassium 4.6 mmol/L (3.5-5.1); Protein, Total 6.4 g/dL (6.0-8.3); Sodium 140 mmol/L (136-145)
[2017-02-11] MEDS: Sodium Bicarb 50 MEQ/50 ML Abboject 8.4% SYRINGE ONE ×2 (04:40→04:44)
[2017-02-11] MEDS: Fentanyl 100 MCG/2 ML VIAL SLOW IVP PRN ×2 (05:30→11:25)
[2017-02-11] MEDS ORDERED: Calcium Chloride 1 GM/10 ML Abboject SYRINGE IVP SCH (05:30)
--- NOTE | 2017-02-11 05:41 | OP ---
DATE OF PROCEDURE: 02/11/2017 PROCEDURE: Right femoral line placement, triple lumen of under ultrasound guidance. INDICATIONS FOR PROCEDURE: Hypotension and necessitation for possible vasopressors. CARPENTER MOLD: Behzad Garcia PA-C DESCRIPTION OF PROCEDURE: The patient was prepped and draped in usual sterile fashion. In the right groin identified the femoral vein with the guidance of the ultrasound in sterile conditions. The ar ea was then anesthetized with 1% lidocaine. Introducer needle was placed under the guidance of ultra sound entering the compressible vessel of the femoral vein. Dark nonpulsatile blood was pulled back, then the guidewire was then sent through without resistance. Introducer needle was removed. A smal l anu at the skin was made with the scalpel, a #11. At that point, the dilator was then passed thro ugh without resistance. Then the guidewire was fed through the central line. The central line was t hen assisted through the brown port and hand secured the end of the guidewire. The line was then ass isted through the wire without resistance to the hub. Guidewire was removed. The line was sutured i n place x2 with 1-0 silk. All ports were flushed with saline and returned blood well. I pulled back . The patient tolerated the procedure well. No complications were noted. Minimal blood loss. The central line was good to use at this point.
[2017-02-11 06:05] LABS: Hemoglobin 7.6 g/dL (14.0-18.0)
[2017-02-11 06:19] LABS: Anion Gap 17 mmol/L (10-20); BUN (Urea Nitrogen) 37 mg/dL (8.9-20.6); Calc. Creatinine Clearance 70 mL/min (70-130); Calcium 10.1 mg/dL (7.8-10.44); Carbon Dioxide 23 mmol/L (22-29); Chloride 109 mmol/L (98-107); Estimated GFR-MDRD 61; Glucose 102 mg/dL (70-105); Magnesium 2.1 mg/dL (1.6-2.6); Phosphorus 5.3 mg/dL (2.3-4.7); Potassium 4.5 mmol/L (3.5-5.1); Sodium 144 mmol/L (136-145)
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
[2017-02-11] MEDS ORDERED: Norepinephrine 8 MG/250 ML BAG IVPB PRN (06:54)
[2017-02-11] MEDS ORDERED: Sodium Bicarb 50 MEQ/50 ML Abboject 8.4% SYRINGE IVP SCH (07:00)
[2017-02-11] MEDS: Sodium Chloride 0.9% 1,000 ML IV SCH ×2 (07:54→23:34)
[2017-02-11 07:56] LABS: Lactic Acid 2.2 mmol/L (0.5-2.2)
[2017-02-11] MEDS: Scopolamine 1.5 mg/72 hour Patch TD SCH (08:01)
[2017-02-11] MEDS: Chlorhexidine Gluconate 15 ML UDCUP SSP SCH ×2 (08:02→20:03)
[2017-02-11] MEDS: Bacitracin Zinc 1 Packet TOP SCH ×2 (08:03→20:03)
[2017-02-11] MEDS: Polyethylene Glycol 3350 17 GM Packet PER TUBE SCH (08:03)
[2017-02-11] MEDS: Pantoprazole 40 MG GRANULES PACKET PER TUBE SCH (08:03)
[2017-02-11] MEDS: Metoprolol Tartrate 25 MG TAB PO SCH (08:03)
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
[2017-02-11] MEDS ORDERED: Sodium Chloride 0.9% 1,000 ML IV SCH (09:30)
--- NOTE | 2017-02-11 09:33 | RAD ---
PORTABLE SUPINE FRONTAL CHEST RADIOGRAPH: DATE: 02/11/17. COMPARISON: 02/09/17. HISTORY: Code Blue. FINDINGS: Tracheostomy tube in stable position. Inspiration is shallow. There is a hazy density in the mid ri ght lung zone suggesting volume loss or mild airspace disease. A similar density is seen in the medi al right lung base. This is stable. There is a dense opacity involving the medial left lung base, stable, suggesting stable left lower lo be consolidation/collapse. There is distended small bowel in the upper abdomen, only partially imaged. IMPRESSION: Dense opacity in the medial left lung base. Hazy density in the mid right lung zone. Gaseous disten tion of bowel in the upper abdomen, which could represent bowel obstruction or ileus. CT or dedicate d abdominal radiographs advised. POS: [facility]
[2017-02-11] MEDS: Piperacillin/Tazobactam 3.375 GM in Sodium Chloride 0.9% 100 ML IVPB SCH ×3 (10:14→21:04)
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
[2017-02-11 10:23] LABS: Hemoglobin 7.4 g/dL (14.0-18.0)
[2017-02-11] MEDS: Acetaminophen 1,000 MG in Premix Bag 1 BAG IVPB SCH ×3 (12:05→23:14)
[2017-02-11 12:15] LABS: Bilirubin Small (Negative); Blood, Urine Moderate (Negative); Clarity CLOUDY (Clear); Glucose, Urine (Dipstick) Negative (Negative); Leukocyte Negative (Negative); Nitrite Negative (Negative); Protein, Urine (Dipstick) 30 mg/dL (Neg-Trace); Specific Gravity, Urine 1.024 (1.002-1.036); pH, Urine 5.5 (5.0-9.0)
[2017-02-11 12:18] LABS: Bacteria/HPF None Seen HPF (None Seen); Squamous Epithelial 0-3 HPF (0-3)
[2017-02-11 12:33] LABS: Other Casts/LPF 0-3 FINELY GRAN LPF (0-3 Hyaline)
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
[2017-02-11] MEDS ORDERED: ISOVUE-370 76%-LOCM 1 ML ONE (13:54)
--- NOTE | 2017-02-11 14:23 | CT ---
CT PULMONARY ANGIO CHEST INCLUDING 3D RENDERING: HISTORY: Dyspnea in a 41-year-old male. FINDINGS: There are bilateral pleural effusions and bilateral lower lobe parenchymal changes, evidence for atel ectasis and/or pneumonia or pneumonitis. NG tube is in place. There is a somewhat dilated esophagus possibly related to some gastroesophageal reflux. There is still a moderate amount of fluid within the stomach despite the NG tube in place. Gastrostomy tube is in place. There is abnormal dilatatio n of small bowel seen in the visualized abdomen with some opacity within the dependent portion of the gallbladder, evidence for sludge or small noncalcified stones. There is no significant CT evidence for an acute pulmonary embolism. No evidence of aortic aneurysm or dissection. No pericardial effus ion. No mediastinal mass or adenopathy. IMPRESSION: No significant evidence for acute pulmonary embolism. Bilateral pleural effusions and bilateral lowe r lobe atelectasis and/or pneumonia. Dilated small bowel loops in the abdomen. Dilated distal esoph melania with fluid, evidence for some gastroesophageal reflux. No evidence for aortic aneurysm or disse ction. Other findings as above. POS: OMEGA
--- NOTE | 2017-02-11 16:11 | PRG ---
DATE OF SERVICE: 02/11/2017 Salomón Barclay remains on the ventilator. Last night, he had an episode of bradycardia severe and david desir was called. It was felt that he probably had mucus plugging as he has had problems with secretio ns. Patient neurologically does not localize. He has reflex eye movements and extremity movements. He remains febrile at 101-102 degrees. Secretions have been a problem. Heart regular remains tachy cardia 130-140, 112 over 61, respiratory rate 36. Laboratories this morning, white count is 8, hemoglobin 8.2, platelet count 1028. Sodium 144, potas sium 4.5, chloride 109, carbon dioxide 23, BUN 37, creatinine 1.28, GFR 61, improved. Last night, pl aced his PEG tube was present. Orogastric tube placed and more than a liter of fluid retrieved. CAT scan of abdomen and pelvis obtained with contrast per OG tube revealed ileus-type pattern with trans ition point appreciated near the ileum. Swirling of the mesentery was questioned. Questionable smal l-bowel obstruction appreciated. Once gastric contents were reduced, abdomen remained soft, although distended and tympanitic. It was quiet. LUNGS: Clear with rhonchi. CARDIAC: Sinus tachycardia. EXTREMITIES: Some edema. PEG tube noted to be in good placement on his CAT scan. ASSESSMENT AND PLAN: 1. Closed head injury. The patient remains in sinus tachycardia and febrile. We will discuss with Dr. Mendoza on resumption of antibiotics. Cultures will be obtained again since he has been off anti biotics for 24 hours, then we will restart antibiotics. Source of his fever and tachycardia are unce rtain. Concerning findings on CAT scan noted. No history of past operations, although were discusse d with his . 2. Pulmonary plugging and secretions. CAT scans suggest basilar atelectasis and effusions and infil trates. This may be probably secondary to his head injury and immobility. 3. I have discussed with the patient's . She desires a DNR status. We will continue care short of CPR and defibrillation. Continue supportive measures. Continue ICU care. She is not ready to w ithdraw care. 4. Acute kidney injury, present since admission.
[2017-02-11 16:15] LABS: Hemoglobin 7.3 g/dL (14.0-18.0)
[2017-02-11] MEDS: HumaLOG 300 UNITS/3 ML VIAL SC PRN ×2 (17:33→20:38)
[2017-02-11] MEDS: Enoxaparin Sodium 40 MG/0.4 ML SYRINGE SC SCH (20:36)
[2017-02-11] MEDS ORDERED: Famotidine/PF 20 mg/2ml Vial SLOW IVP SCH (21:00)
[2017-02-11 22:25] LABS: Hemoglobin 7.3 g/dL (14.0-18.0)
[2017-02-12] MEDS: Piperacillin/Tazobactam 3.375 GM in Sodium Chloride 0.9% 100 ML IVPB SCH ×4 (03:25→22:02)
[2017-02-12] MEDS: HumaLOG 300 UNITS/3 ML VIAL SC PRN (04:04)
[2017-02-12 04:28] LABS: #Basophils 0.1 thou/uL (0.0-0.2); #Eosinphils 0.1 thou/uL (0.0-0.7); #Monocytes 0.9 thou/uL (0.11-0.59); #Neutrophils 6.8 thou/uL (1.40-6.50); %Basophils 1.1 % (0.0-1.0); %Eosinophils 0.6 % (0.0-10.0); %Lymphocytes 11.6 % (21.0-51.0); %Monocytes 10.4 % (0.0-10.0); %Neutrophils 76.3 % (42.0-75.0); Hemoglobin 6.8 g/dL (14.0-18.0); Mean Corpuscular HGB CONC 32.9 g/dL (32.0-36.0); Mean Corpuscular Volume 94.3 fl (80.0-94.0); Mean Platelet Volume 6.1 fL (7.4-10.4); Platelet Count 923 thou/uL (130-400); RBC Distribution Width 13.2 % (11.5-14.5); Red Blood Cell (RBC) Count 2.19 mill/uL (4.70-6.10); White Blood Cell (WBC) Count 8.8 thou/uL (4.8-10.8)
[2017-02-12] MEDS: Sodium Chloride 0.9% 1,000 ML IV SCH (04:43)
[2017-02-12 05:12] LABS: ALT (SGPT) 58 U/L (8-55); AST (SGOT) 98 U/L (5-34); Albumin 2.8 g/dL (3.5-5.0); Alkaline Phosphatase 135 U/L (40-150); Anion Gap 14 mmol/L (10-20); BUN (Urea Nitrogen) 39 mg/dL (8.9-20.6); Bilirubin, Total 0.6 mg/dL (0.2-1.2); Calc. Creatinine Clearance 83 mL/min (70-130); Calcium 8.4 mg/dL (7.8-10.44); Carbon Dioxide 26 mmol/L (22-29); Chloride 110 mmol/L (98-107); Estimated GFR-MDRD 72; Glucose 143 mg/dL (70-105); Phosphorus 4.5 mg/dL (2.3-4.7); Potassium 3.4 mmol/L (3.5-5.1); Protein, Total 6.8 g/dL (6.0-8.3); Sodium 147 mmol/L (136-145)
[2017-02-12] MEDS: Fentanyl 100 MCG/2 ML VIAL SLOW IVP PRN ×3 (05:22→23:39)
[2017-02-12] MEDS: Acetaminophen 1,000 MG in Premix Bag 1 BAG IVPB SCH ×2 (05:22→12:30)
[2017-02-12] MEDS ORDERED: Potassium Chloride 40 MEQ in Premix Bag 1 BAG IVPB SCH (07:45)
[2017-02-12] MEDS: Bacitracin Zinc 1 Packet TOP SCH ×2 (08:38→08:50)
[2017-02-12] MEDS: Chlorhexidine Gluconate 15 ML UDCUP SSP SCH ×2 (08:38→20:26)
--- NOTE | 2017-02-12 08:45 | RAD ---
PORTABLE SUPINE RADIOGRAPH OF ABDOMEN DECUBITUS RADIOGRAPH OF ABDOMEN: Date: 02-12-17 Comparison: None. History: Distention. FINDINGS: The decubitus radiograph demonstrates no evidence for free intraperitoneal air. There is a nasogastri c tube extending to the left upper quadrant. There is a vascular catheter in the right inguinal regio n. There is density in the left upper quadrant suggesting a gastrostomy tube. There is dilated gas filled bowel throughout the abdomen/pelvis. This appears to represent a combinat ion of large and small bowel. This is consistent with the findings of small bowel obstruction on the 02-11-17 CT abdomen and pelvis. IMPRESSION: Diffuse gaseous distention of bowel consistent with bowel obstruction. No discrete free intraperitone al air evident on this exam. POS: FREDA
[2017-02-12] MEDS: Potassium Chloride 20 MEQ, Admixture Fee 1 EACH in Lactated Ringer's 1,000 ML IV SCH ×3 (08:49→23:32)
[2017-02-12] MEDS: Pantoprazole 40 MG VIAL IVP SCH (08:55)
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
[2017-02-12] MEDS ORDERED: Fentanyl 250 MCG/5 ML VIAL ONE (14:41)
[2017-02-12] MEDS ORDERED: Midazolam HCl 5 mg/5 ml Vial ONE (14:58)
--- NOTE | 2017-02-12 16:30 | PRG ---
DATE OF SERVICE: 02/12/2017 SUBJECTIVE: Mr. Salomón Barclay remains on the ventilator. Neurologically, he has not changed. He localizes the pain and moves his extremities. OBJECTIVE: VITAL SIGNS: Heart rate 113, blood pressure 130/78, and temperature 98.8 degrees. LUNGS: Clear to auscultation. CARDIAC: Regular rate and rhythm without murmur or gallop. ABDOMEN: Soft, slightly distended and slightly tympanitic. NG tube output 3150. No bowel movements . LABORATORY DATA: White count 8, hemoglobin 6.8, for which he has received 2 units of packed cells, platelet count 923,000. Basic metabolic profile: Sodium 147, potassium 3.4, chloride 110, carbon di oxide 26, BUN 39, magnesium 3, phosphorus 4.5. IMAGING DATA: Abdominal x-ray this morning reveals diffuse small bowel distention with a markedly di lated loop. No significant colonic gas suggests obstruction. ASSESSMENT AND PLAN: 1. Small-bowel obstruction in a patient who has not had a previous abdominal operation. Considering the CAT scan findings, a swirling of mesentery and high NG tube output and acute nature of this, we w ill plan an exploratory laparotomy. I have discussed with his the risk of infection, bleeding, and reoperation, she consents. We will plan that today. 2. IV fluid adjustment pending electrolytes.
--- NOTE | 2017-02-12 17:30 | RAD ---
PORTABLE SUPINE CHEST ONE VIEW 02/12/17 HISTORY: 41-year-old male to evaluate central line placement. Tracheostomy tube is in place. An NG tube is noted extending into the stomach. There appears to be a right central line, the tip of which is extending up into the right jugular vein. There are bilateral pleural effusions as well as some increased density in the retrocardiac region which is stable. IMPRESSION: Placement of an NG tube in satisfactory location. Right central line has been placed. The tip of whic h extends up into the right jugular vein. Bilateral pleural effusions and stable bibasilar parenchyma l changes. Findings were discussed with the patient's nurse, Alton, at 5 p.m. in regards to the position of the r ight subclavian catheter. Code CR POS: OMEGA
[2017-02-12] MEDS ORDERED: PHENYLEPHRINE-NS 100 MCG/ML 10 ML SYRINGE ONE (18:38)
[2017-02-12] MEDS: Enoxaparin Sodium 40 MG/0.4 ML SYRINGE SC SCH (20:27)
--- NOTE | 2017-02-12 21:32 | OP ---
DATE OF SURGERY: 02/12/2017 PREOPERATIVE DIAGNOSES: Small-bowel obstruction. CAT scan suggests a swirling in the mesentery and a transition point and an acute bowel obstruction in a patient without prior laparotomy, senescent gr oin central line, closed head injury, trach, and PEG. POSTOPERATIVE DIAGNOSES: Small-bowel obstruction. CAT scan suggests a swirling in the mesentery and a transition point and an acute bowel obstruction in a patient without prior laparotomy, senescent g roin central line, closed head injury, trach, and PEG, without evidence of mechanical obstruction. S igmoid colon was markedly redundant, but there was no prior radiological history or evidence of sigmo id volvulus, thus resection not undertaken. 4-point liters of enteric contents evacuated with NG tub e. SURGEON: August Holguin M.D. ANESTHESIA: General. ESTIMATED BLOOD LOSS: None. PROCEDURE IN DETAIL: The patient was taken to the operating room where under general anesthesia, rig ht periclavicular area was prepared with ChloraPrep, draped in a routine fashion. Seldinger techniqu e used to place a central line after subclavian vein cannulated in infraclavicular approach with a tr ocar catheter. J-wire removed. Catheter secured with 2 interrupted sutures of 3-0 silk. Biopatch s terile dressing applied. Each port aspirated blood and flushed with saline solution. Abdomen was prepared with ChloraPrep, draped in a routine fashion. A periumbilical midline incision made, carried down through the skin and subcutaneous tissue, midline fascia. There was clear fluid i n the abdominal cavity evacuated. Small-bowel was markedly dilated. It was explored and retrograde from the terminal ileum to the ligament of Treitz evacuating 4-point liters of enteric contents. Sma ll bowel was normal. There was no mechanical obstruction. Sigmoid colon was redundant. There was n o evidence of colonic masses. Sponge, needle, and instrument counts were correct. Midline fascia cl osed with A continuous suture of #1 PDS. Skin and subcutaneous tissues irrigated, skin approximated with raquel. Sterile dressing applied. The patient tolerated the procedure well.
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
[2017-02-13] MEDS: Piperacillin/Tazobactam 3.375 GM in Sodium Chloride 0.9% 100 ML IVPB SCH ×4 (04:27→21:25)
[2017-02-13 04:44] LABS: #Basophils 0.1 thou/uL (0.0-0.2); #Eosinphils 0.2 thou/uL (0.0-0.7); #Lymphocytes 1.3 thou/uL (1.20-3.40); #Monocytes 0.7 thou/uL (0.11-0.59); #Neutrophils 7.2 thou/uL (1.40-6.50); %Basophils 0.6 % (0.0-1.0); %Eosinophils 1.7 % (0.0-10.0); %Lymphocytes 13.4 % (21.0-51.0); %Monocytes 7.5 % (0.0-10.0); %Neutrophils 76.8 % (42.0-75.0); Hemoglobin 9.6 g/dL (14.0-18.0); Mean Corpuscular HGB CONC 32.2 g/dL (32.0-36.0); Mean Corpuscular Hemoglobin 29.8 pg (27.0-31.0); Mean Corpuscular Volume 92.6 fl (80.0-94.0); Mean Platelet Volume 5.5 fL (7.4-10.4); Platelet Count 804 thou/uL (130-400); RBC Distribution Width 14.2 % (11.5-14.5); Red Blood Cell (RBC) Count 3.22 mill/uL (4.70-6.10); White Blood Cell (WBC) Count 9.3 thou/uL (4.8-10.8)
[2017-02-13 04:59] LABS: Anion Gap 14 mmol/L (10-20); BUN (Urea Nitrogen) 29 mg/dL (8.9-20.6); Calc. Creatinine Clearance 101 mL/min (70-130); Carbon Dioxide 25 mmol/L (22-29); Chloride 116 mmol/L (98-107); Estimated GFR-MDRD Greater than 90; Glucose 123 mg/dL (70-105); Potassium 3.9 mmol/L (3.5-5.1); Sodium 151 mmol/L (136-145)
[2017-02-13] MEDS: Fentanyl 100 MCG/2 ML VIAL SLOW IVP PRN ×3 (08:22→21:34)
[2017-02-13] MEDS: Pantoprazole 40 MG VIAL IVP SCH (08:22)
[2017-02-13] MEDS: Chlorhexidine Gluconate 15 ML UDCUP SSP SCH ×2 (08:22→21:19)
[2017-02-13] MEDS: Bacitracin Zinc 1 Packet TOP SCH ×2 (08:22→21:19)
--- NOTE | 2017-02-13 08:40 | PRG ---
DATE OF PROGRESS NOTE: 02/13/2017 SUBJECTIVE: Salomón Barclay is doing well this morning. NG tube output has been less than 200 [address] po [address]operatively. As recalled, he had 4.2 liters evacuated from his NG tube intraoperatively, no mechan ical obstruction was found. His problems are mostly of ileus. He did have a very redundant sigmoid colon that might have a propensity for volvulus, but there has been no prior radiological evidence of a volvulus thus resection not undertaken. The patient neurologically remains the same. He localize s with his right hand and moves all extremities. Eyes are closed. He is on the ventilator. OBJECTIVE: VITAL SIGNS: Heart rate 115, temperature 100.5 degrees, which is improved from the past. His heart rate has come down from its chronic state of 120-130, blood pressure 120/94. Gastric drainage as not ed above. Cortes output 1100 mL over the past 24 hours. LUNGS: Clear to auscultation. CARDIAC: Regular rate and rhythm without murmur or gallop. ABDOMEN: Soft. EXTREMITIES: Unremarkable. LABORATORY DATA: White count 9, hemoglobin 9.6. Basic metabolic profile essentially unremarkable. ASSESSMENT AND PLAN: 1. Probable ileus of undetermined etiology. Continue NG tube to suction. Hold tube feedings, obser ve continue IV fluid support. 2. Slightly hyponatremic and hyperchloremic. We will adjust IV fluids accordingly. 3. Closed head injury. 4. Respiratory failure with trach. 5. PEG tube in place. Cortes to gravity drainage.
[2017-02-13] MEDS: Acetaminophen 1,000 MG in Premix Bag 1 BAG IVPB PRN ×2 (09:56→21:31)
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
[2017-02-13] MEDS ORDERED: TRACE ELEMENT IV SCH ×6 (14:00)
[2017-02-13] MEDS ORDERED: FAT EMULSIONS IV SCH ×6 (14:00)
[2017-02-13] MEDS ORDERED: MULTIVITAMINS IV SCH ×6 (14:00)
[2017-02-13] MEDS ORDERED: [UNRECOGNIZED DRUG - OTHER] IV SCH ×6 (14:00)
[2017-02-13] MEDS: POTASSIUM ACETATE IV SCH ×10 (14:23)
[2017-02-13] MEDS: CALCIUM CHLORIDE IV SCH ×10 (14:23)
[2017-02-13] MEDS: [UNRECOGNIZED DRUG - OTHER] IV SCH ×10 (14:23)
[2017-02-13] MEDS: SODIUM ACETATE IV SCH ×10 (14:23)
[2017-02-13] MEDS: Potassium Chloride 20 MEQ, Admixture Fee 1 EACH in Lactated Ringer's 1,000 ML IV SCH (14:53)
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
[2017-02-13] MEDS: Enoxaparin Sodium 40 MG/0.4 ML SYRINGE SC SCH (21:19)
[2017-02-13] MEDS: HumaLOG 300 UNITS/3 ML VIAL SC PRN (22:29)
[2017-02-14] MEDS: Fentanyl 100 MCG/2 ML VIAL SLOW IVP PRN ×4 (00:32→12:52)
[2017-02-14] MEDS ORDERED: Potassium Chloride 20 MEQ, Admixture Fee 1 EACH in Lactated Ringer's 1,000 ML IV SCH ×2 (03:15→07:30)
[2017-02-14] MEDS: HumaLOG 300 UNITS/3 ML VIAL SC PRN ×3 (03:48→23:14)
[2017-02-14] MEDS: Piperacillin/Tazobactam 3.375 GM in Sodium Chloride 0.9% 100 ML IVPB SCH ×4 (04:02→21:56)
[2017-02-14 04:43] LABS: Anion Gap 8 mmol/L (10-20); BUN (Urea Nitrogen) 18 mg/dL (8.9-20.6); Calc. Creatinine Clearance 129 mL/min (70-130); Calcium 7.9 mg/dL (7.8-10.44); Carbon Dioxide 25 mmol/L (22-29); Chloride 120 mmol/L (98-107); Estimated GFR-MDRD Greater than 90; Glucose 181 mg/dL (70-105); Potassium 3.2 mmol/L (3.5-5.1); Sodium 150 mmol/L (136-145)
[2017-02-14 04:50] LABS: #Basophils 0.1 thou/uL (0.0-0.2); #Eosinphils 0.5 thou/uL (0.0-0.7); #Lymphocytes 1.2 thou/uL (1.20-3.40); #Monocytes 0.5 thou/uL (0.11-0.59); #Neutrophils 5.9 thou/uL (1.40-6.50); %Eosinophils 6.2 % (0.0-10.0); %Lymphocytes 14.3 % (21.0-51.0); %Monocytes 5.6 % (0.0-10.0); Hemoglobin 6.6 g/dL (14.0-18.0); Mean Corpuscular HGB CONC 32.8 g/dL (32.0-36.0); Mean Corpuscular Hemoglobin 30.7 pg (27.0-31.0); Mean Corpuscular Volume 93.6 fl (80.0-94.0); Mean Platelet Volume 5.6 fL (7.4-10.4); Platelet Count 806 thou/uL (130-400); RBC Distribution Width 13.9 % (11.5-14.5); Red Blood Cell (RBC) Count 2.14 mill/uL (4.70-6.10); White Blood Cell (WBC) Count 8.1 thou/uL (4.8-10.8)
[2017-02-14 05:38] LABS: #Eosinphils 0.5 thou/uL (0.0-0.7); #Lymphocytes 0.9 thou/uL (1.20-3.40); #Monocytes 0.5 thou/uL (0.11-0.59); #Neutrophils 4.8 thou/uL (1.40-6.50); %Basophils 0.7 % (0.0-1.0); %Eosinophils 7.7 % (0.0-10.0); %Lymphocytes 13.6 % (21.0-51.0); %Monocytes 7.6 % (0.0-10.0); %Neutrophils 70.3 % (42.0-75.0); Mean Corpuscular HGB CONC 32.2 g/dL (32.0-36.0); Mean Corpuscular Volume 93.4 fl (80.0-94.0); Mean Platelet Volume 5.4 fL (7.4-10.4); Platelet Count 687 thou/uL (130-400); RBC Distribution Width 14.1 % (11.5-14.5); Red Blood Cell (RBC) Count 2.65 mill/uL (4.70-6.10); White Blood Cell (WBC) Count 6.8 thou/uL (4.8-10.8)
[2017-02-14] MEDS ORDERED: Potassium ACETATE 40 MEQ/20 ML VIAL IV SCH (07:15)
--- NOTE | 2017-02-14 07:29 | PRG ---
DATE OF SERVICE: 02/14/2017 SUBJECTIVE: Mr. Barclay is doing well today. He is on the ventilator. He follows commands, opens h is eyes to voice. He is moving his extremities. OBJECTIVE: VITAL SIGNS: Blood pressure 136/77, heart rate 99, 21 respiratory rate. LUNGS: Clear to auscultation, no wheezing. CARDIAC: Regular rate and rhythm. ABDOMEN: Soft, nontender. Bowel sounds present. The patient is on TPN. Surgical wound looks good midline abdomen, dressing was removed. Wound left open, gastric drainage 250 mL for 24 hours, urine output 1575 twenty-four hours. LABORATORY DATA: White count 6, hemoglobin 8. Sodium 150, down from 151 yesterday, potassium 3.2, c hloride 120, BUN 18, creatinine 0.66. Abdominal x-ray obtained this morning, portable single view re veals gas in the transverse colon and some distended small bowel loops, but not as severe as preopera tively. ASSESSMENT AND PLAN: 1. Awaiting better GI function. Continue TPN. 2. Potassium replacement. 3. Respiratory failure, with a tracheostomy wean per Pulmonary Medicine. 4. Closed head injury, stable, following commands. Continue weaning efforts. Await GI function, po tassium replacement.
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
[2017-02-14] MEDS ORDERED: SODIUM CHLORIDE IV SCH (07:45)
[2017-02-14] MEDS ORDERED: ADMIXTURE FEE IV SCH (07:45)
[2017-02-14] MEDS ORDERED: POTASSIUM ACETATE IV SCH (07:45)
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
[2017-02-14] MEDS: Scopolamine 1.5 mg/72 hour Patch TD SCH (08:59)
[2017-02-14] MEDS: Chlorhexidine Gluconate 15 ML UDCUP SSP SCH ×2 (09:00→20:22)
[2017-02-14] MEDS: Pantoprazole 40 MG VIAL IVP SCH (09:00)
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
[2017-02-14] MEDS: Bacitracin Zinc 1 Packet TOP SCH ×2 (10:02→20:22)
[2017-02-14] MEDS ORDERED: Sterile Water 10 ML VIAL IVP SCH (11:45)
[2017-02-14] MEDS ORDERED: Activase 2 MG VIAL CATH SCH (11:45)
[2017-02-14] MEDS: CALCIUM CHLORIDE IV SCH ×10 (14:41)
[2017-02-14] MEDS: [UNRECOGNIZED DRUG - OTHER] IV SCH ×10 (14:41)
[2017-02-14] MEDS: POTASSIUM ACETATE IV SCH ×10 (14:41)
[2017-02-14] MEDS: SODIUM ACETATE IV SCH ×10 (14:41)
[2017-02-14] MEDS: Enoxaparin Sodium 40 MG/0.4 ML SYRINGE SC SCH (20:23)
[2017-02-15] MEDS: Piperacillin/Tazobactam 3.375 GM in Sodium Chloride 0.9% 100 ML IVPB SCH ×4 (04:24→21:48)
[2017-02-15] MEDS: HumaLOG 300 UNITS/3 ML VIAL SC PRN ×3 (04:28→22:05)
[2017-02-15 04:52] LABS: #Basophils 0.1 thou/uL (0.0-0.2); #Eosinphils 0.5 thou/uL (0.0-0.7); #Lymphocytes 1.2 thou/uL (1.20-3.40); #Monocytes 0.5 thou/uL (0.11-0.59); #Neutrophils 4.8 thou/uL (1.40-6.50); %Basophils 0.9 % (0.0-1.0); %Eosinophils 7.7 % (0.0-10.0); %Lymphocytes 16.5 % (21.0-51.0); %Monocytes 6.4 % (0.0-10.0); %Neutrophils 68.6 % (42.0-75.0); Hemoglobin 8.4 g/dL (14.0-18.0); Mean Corpuscular HGB CONC 31.5 g/dL (32.0-36.0); Mean Corpuscular Hemoglobin 29.1 pg (27.0-31.0); Mean Corpuscular Volume 92.5 fl (80.0-94.0); Mean Platelet Volume 5.5 fL (7.4-10.4); Platelet Count 760 thou/uL (130-400); RBC Distribution Width 14.2 % (11.5-14.5)
[2017-02-15 05:07] LABS: Anion Gap 9 mmol/L (10-20); BUN (Urea Nitrogen) 14 mg/dL (8.9-20.6); Calc. Creatinine Clearance 139 mL/min (70-130); Calcium 8.3 mg/dL (7.8-10.44); Carbon Dioxide 22 mmol/L (22-29); Chloride 118 mmol/L (98-107); Estimated GFR-MDRD Greater than 90; Glucose 154 mg/dL (70-105); Potassium 3.4 mmol/L (3.5-5.1); Sodium 146 mmol/L (136-145)
[2017-02-15] MEDS: Chlorhexidine Gluconate 15 ML UDCUP SSP SCH ×2 (10:01→20:36)
[2017-02-15] MEDS: Pantoprazole 40 MG VIAL IVP SCH (10:01)
[2017-02-15] MEDS: Bacitracin Zinc 1 Packet TOP SCH ×2 (10:01→20:36)
--- NOTE | 2017-02-15 10:09 | PRG ---
DATE OF SERVICE: 02/15/2017 Mr. Barclay was seen in the ICU. He continues to improve on a daily basis. The nursing reports impr ovement he gets since yesterday. His vitals look stable to me. He has not had a fever over 100 degr ees Fahrenheit since 8:00 on the . On examination, Mr. Barclay opens his eyes to voice now. He may have followed some Bah[place]ian commands for me this morning. I asked him to wiggle his toes and after a few seconds he started to do so on t he right side. He is still very purposeful with both lower extremities and the right upper extremity . He has a little slower with the left, but it is improving. He localizes with the left upper extre mity. He has antigravity strength in it now. Mr. Barclay is improving. The Neurosurgery Team will continue to follow with managing his airway wit h trach collar only, then he can be moved from the ICU in my opinion. I will defer to the Trauma Ankur vicki Team.
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
[2017-02-15] MEDS: [UNRECOGNIZED DRUG - OTHER] IV SCH ×10 (14:53)
[2017-02-15] MEDS: SODIUM ACETATE IV SCH ×10 (14:53)
[2017-02-15] MEDS: POTASSIUM ACETATE IV SCH ×10 (14:53)
[2017-02-15] MEDS: CALCIUM CHLORIDE IV SCH ×10 (14:53)
[2017-02-15] MEDS: Enoxaparin Sodium 40 MG/0.4 ML SYRINGE SC SCH (20:36)
[2017-02-16] MEDS: HumaLOG 300 UNITS/3 ML VIAL SC PRN ×4 (04:19→22:06)
[2017-02-16] MEDS: Piperacillin/Tazobactam 3.375 GM in Sodium Chloride 0.9% 100 ML IVPB SCH ×4 (04:20→21:03)
[2017-02-16 04:26] LABS: #Basophils 0.1 thou/uL (0.0-0.2); #Eosinphils 0.6 thou/uL (0.0-0.7); #Lymphocytes 1.1 thou/uL (1.20-3.40); #Monocytes 0.5 thou/uL (0.11-0.59); #Neutrophils 5.3 thou/uL (1.40-6.50); %Eosinophils 8.2 % (0.0-10.0); %Lymphocytes 14.5 % (21.0-51.0); %Monocytes 6.8 % (0.0-10.0); %Neutrophils 69.5 % (42.0-75.0); Hemoglobin 9.5 g/dL (14.0-18.0); Mean Corpuscular HGB CONC 33.6 g/dL (32.0-36.0); Mean Corpuscular Hemoglobin 30.3 pg (27.0-31.0); Mean Corpuscular Volume 90.2 fl (80.0-94.0); Mean Platelet Volume 5.3 fL (7.4-10.4); Platelet Count 704 thou/uL (130-400); RBC Distribution Width 14.1 % (11.5-14.5); Red Blood Cell (RBC) Count 3.11 mill/uL (4.70-6.10); White Blood Cell (WBC) Count 7.6 thou/uL (4.8-10.8)
[2017-02-16 04:53] LABS: Anion Gap 10 mmol/L (10-20); BUN (Urea Nitrogen) 15 mg/dL (8.9-20.6); Calc. Creatinine Clearance 137 mL/min (70-130); Calcium 8.5 mg/dL (7.8-10.44); Carbon Dioxide 22 mmol/L (22-29); Chloride 112 mmol/L (98-107); Estimated GFR-MDRD Greater than 90; Glucose 179 mg/dL (70-105); Potassium 3.4 mmol/L (3.5-5.1); Sodium 141 mmol/L (136-145)
[2017-02-16] MEDS ORDERED: Potassium Chloride 40 MEQ in Premix Bag 1 BAG IVPB SCH (07:45)
[2017-02-16] MEDS: Chlorhexidine Gluconate 15 ML UDCUP SSP SCH ×2 (08:23→20:01)
[2017-02-16] MEDS: Pantoprazole 40 MG VIAL IVP SCH (08:23)
[2017-02-16] MEDS: Bacitracin Zinc 1 Packet TOP SCH ×2 (08:23→20:01)
--- NOTE | 2017-02-16 09:51 | PRG ---
NEUROSURGERY PROGRESS NOTE DATE OF SERVICE: 02/16/2017 Mr. Barclay is in the ICU today. He is off ventilatory support and on a T-piece greater than 35% oxy gen through his trach. Yesterday per his family he was interacting better. His family asked them to perform tasks in Urdu and he seemed to be following commands for them. This morning he is restin g in the room. He did not open his eyes to voice for me today. With enough stimulus, the right eye that starts to move up, but his eye is not as fully open as it was yesterday. There is still some lo calizing motions of both the upper extremities although the right is brisker and lower extremities ar e purposeful. I do not find any neurological changes in Mr. Barclay. He will likely need inpatient either rehabili tation or penitentiary care. This may be a problem due to his lack of insurance coverage.
--- NOTE | 2017-02-16 13:20 | PRG ---
DATE OF SERVICE: 02/16/2017 Mr. Barclay remains in the CCU. He is on T-piece and neurologically he will move his right side, but does not follow commands for me. PHYSICAL EXAMINATION: VITAL SIGNS: Temperature 99.6, pulse 107, blood pressure 124/79, 24-hour intake is 2851, output 3092 . HEENT: Unremarkable. NECK: Trach in good position. LUNGS: Coarse rhonchi. CARDIOVASCULAR: S1, S2 regular. ABDOMEN: Soft, nontender. PEG tube noted. EXTREMITIES: No edema. LABORATORY DATA: White blood cell count 7.6, hemoglobin 9.5, hematocrit 28.1, platelet count 704. S odium 141, potassium 3.4, chloride 112, CO2 of 22, BUN 30, creatinine 0.6, glucose 179. ASSESSMENT: 1. Status post closed head injury. 2. Acute respiratory failure requiring mechanical ventilation, tracheostomy placement. 3. Ileus. 4. Mild hypernatremia which is better. 5. Hypokalemia. PLAN: 1. Replace potassium. 2. Continue T-piece trials. 3. From a pulmonary critical care standpoint, he is probably ready for transfer to the intermediate care unit.
[2017-02-16] MEDS: POTASSIUM ACETATE IV SCH ×10 (14:33)
[2017-02-16] MEDS: SODIUM ACETATE IV SCH ×10 (14:33)
[2017-02-16] MEDS: CALCIUM CHLORIDE IV SCH ×10 (14:33)
[2017-02-16] MEDS: [UNRECOGNIZED DRUG - OTHER] IV SCH ×10 (14:33)
[2017-02-16] MEDS ORDERED: Acetaminophen 650 MG Suppository PR PRN (19:32)
[2017-02-16] MEDS: Enoxaparin Sodium 40 MG/0.4 ML SYRINGE SC SCH (20:01)
[2017-02-16] MEDS ORDERED: Pantoprazole 40 MG VIAL IVP SCH (21:00)
[2017-02-17] MEDS: Piperacillin/Tazobactam 3.375 GM in Sodium Chloride 0.9% 100 ML IVPB SCH ×4 (04:11→21:03)
[2017-02-17 04:36] LABS: #Basophils 0.1 thou/uL (0.0-0.2); #Eosinphils 0.6 thou/uL (0.0-0.7); #Lymphocytes 1.6 thou/uL (1.20-3.40); #Monocytes 0.7 thou/uL (0.11-0.59); %Basophils 0.9 % (0.0-1.0); %Eosinophils 6.6 % (0.0-10.0); %Lymphocytes 17.8 % (21.0-51.0); %Neutrophils 66.8 % (42.0-75.0); Hemoglobin 10.2 g/dL (14.0-18.0); Mean Corpuscular HGB CONC 33.7 g/dL (32.0-36.0); Mean Corpuscular Hemoglobin 30.1 pg (27.0-31.0); Mean Corpuscular Volume 89.5 fl (80.0-94.0); Mean Platelet Volume 5.6 fL (7.4-10.4); Platelet Count 678 thou/uL (130-400); RBC Distribution Width 14.5 % (11.5-14.5); Red Blood Cell (RBC) Count 3.38 mill/uL (4.70-6.10)
[2017-02-17 05:04] LABS: Anion Gap 9 mmol/L (10-20); BUN (Urea Nitrogen) 16 mg/dL (8.9-20.6); Calc. Creatinine Clearance 137 mL/min (70-130); Calcium 8.6 mg/dL (7.8-10.44); Carbon Dioxide 24 mmol/L (22-29); Chloride 109 mmol/L (98-107); Estimated GFR-MDRD Greater than 90; Glucose 166 mg/dL (70-105); Potassium 3.4 mmol/L (3.5-5.1); Sodium 139 mmol/L (136-145)
[2017-02-17] MEDS: HumaLOG 300 UNITS/3 ML VIAL SC PRN ×3 (05:28→22:02)
[2017-02-17] MEDS: Scopolamine 1.5 mg/72 hour Patch TD SCH (08:38)
[2017-02-17] MEDS: Bacitracin Zinc 1 Packet TOP SCH ×2 (08:39→20:14)
[2017-02-17] MEDS: Chlorhexidine Gluconate 15 ML UDCUP SSP SCH ×2 (08:40→20:13)
[2017-02-17] MEDS: Pantoprazole 40 MG VIAL IVP SCH (08:41)
[2017-02-17 08:48] LABS: Magnesium 1.5 mg/dL (1.6-2.6); Phosphorus 3.2 mg/dL (2.3-4.7)
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
[2017-02-17] MEDS ORDERED: Magnesium Sulfate 4 GM in Sodium Chloride 0.9% 250 ML 250 ML IVPB SCH (09:45)
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
[2017-02-17] MEDS: Potassium Chloride 40 MEQ in Premix Bag 1 BAG IVPB SCH ×2 (11:24→15:54)
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
[2017-02-17] MEDS ORDERED: SODIUM ACETATE IV SCH ×10 (14:00)
[2017-02-17] MEDS ORDERED: CALCIUM GLUCONATE IV SCH ×10 (14:00)
[2017-02-17] MEDS ORDERED: POTASSIUM ACETATE IV SCH ×10 (14:00)
[2017-02-17] MEDS ORDERED: [UNRECOGNIZED DRUG - OTHER] IV SCH ×10 (14:00)
[2017-02-17] MEDS: [UNRECOGNIZED DRUG - OTHER] IV SCH ×10 (14:55)
[2017-02-17] MEDS: CALCIUM GLUCONATE IV SCH ×10 (14:55)
[2017-02-17] MEDS: POTASSIUM ACETATE IV SCH ×10 (14:55)
[2017-02-17] MEDS: SODIUM ACETATE IV SCH ×10 (14:55)
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
[2017-02-17] MEDS ORDERED: Morphine 4 MG/ML VIAL ONE (15:29)
[2017-02-17] MEDS ORDERED: Morphine 4 MG/ML VIAL SLOW IVP SCH (15:45)
[2017-02-17] MEDS: Acetaminophen 1,000 MG in Premix Bag 1 BAG IVPB SCH ×2 (17:25→23:52)
[2017-02-17] MEDS ORDERED: Ketorolac Tromethamine 30 MG/ML VIAL IVP SCH (18:00)
[2017-02-17] MEDS: Enoxaparin Sodium 40 MG/0.4 ML SYRINGE SC SCH (20:14)
[2017-02-18] MEDS: Piperacillin/Tazobactam 3.375 GM in Sodium Chloride 0.9% 100 ML IVPB SCH ×4 (04:01→21:03)
[2017-02-18] MEDS: Acetaminophen 1,000 MG in Premix Bag 1 BAG IVPB SCH ×3 (05:10→18:12)
[2017-02-18] MEDS: HumaLOG 300 UNITS/3 ML VIAL SC PRN ×4 (05:11→20:57)
[2017-02-18] MEDS ORDERED: Lidocaine 1% (PF) 30 ML VIAL ONE (09:01)
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
[2017-02-18] MEDS: Pantoprazole 40 MG VIAL IVP SCH (10:19)
[2017-02-18] MEDS: Bacitracin Zinc 1 Packet TOP SCH ×2 (10:19→20:53)
[2017-02-18] MEDS: Chlorhexidine Gluconate 15 ML UDCUP SSP SCH ×2 (10:19→20:53)
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
[2017-02-18] MEDS: POTASSIUM ACETATE IV SCH ×10 (14:43)
[2017-02-18] MEDS: CALCIUM GLUCONATE IV SCH ×10 (14:43)
[2017-02-18] MEDS: [UNRECOGNIZED DRUG - OTHER] IV SCH ×10 (14:43)
[2017-02-18] MEDS: SODIUM ACETATE IV SCH ×10 (14:43)
[2017-02-18] MEDS: Enoxaparin Sodium 40 MG/0.4 ML SYRINGE SC SCH (20:53)
[2017-02-19] MEDS: Piperacillin/Tazobactam 3.375 GM in Sodium Chloride 0.9% 100 ML IVPB SCH ×2 (04:39→09:36)
[2017-02-19] MEDS: HumaLOG 300 UNITS/3 ML VIAL SC PRN ×2 (05:02→10:23)
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
--- NOTE | 2017-02-19 08:37 | RAD ---
PORTABLE CHEST: History: Pleural effusion. Chest tube placement. Comparison: 02-10-17 FINDINGS: Heart size is enlarged. There has been interval placement of a right sided chest tube. There are no s igns of pneumothorax. The pleural effusion is reduced. Right central line is again noted as directed into the jugular vein. IMPRESSION: 1. Right sided central line catheter tip directed into the neck. 2. Right sided chest tube. There has been interval reduction of the right sided effusion. POS: [facility]
[2017-02-19] MEDS: Chlorhexidine Gluconate 15 ML UDCUP SSP SCH ×2 (09:08→20:00)
[2017-02-19] MEDS: Bacitracin Zinc 1 Packet TOP SCH (09:08)
[2017-02-19] MEDS: Pantoprazole 40 MG VIAL IVP SCH (09:08)
[2017-02-19] MEDS: Vancomycin HCl 1 GM in Premix Bag 1 BAG IVPB SCH ×2 (15:26→22:46)
--- NOTE | 2017-02-19 17:29 | PRG ---
DATE OF SERVICE: 02/19/2017 SUBJECTIVE: Mr. Barlcay remains in coma. [place] coma scale today is noted at E4 M5-6, V1T. He is tolerating tube feeds and TPN is being discontinued after current bag. The patient requires adequate urinary output. He is also having bowel movements. OBJECTIVE: VITAL SIGNS: Today includes blood pressure 116/78, pulse is 112, respiratory rate is 14. Maximum te mperature in the last 24 hours is 100.9 degrees Fahrenheit. Blood cultures obtained on 02/18/2017 is positive for methicillin-resistant Staphylococcus epidermidis x2. The patient is currently on Zosyn . Oxygen saturation is 100% on FIO2 of 21%. HEENT: Reveals left pupil 5 mm, right at 4 mm, both sluggishly reactive to light. HEART: Reveals regular rate with sinus tachycardia. No murmurs or gallops auscultated. CHEST: Clear to auscultation bilaterally. CARDIOVASCULAR: Breathing is regular and unlabored. ABDOMEN: Soft, nontender and nondistended. Incision remains intact, clean, and dry. EXTREMITIES: Reveals 2+ radial and pedal pulses bilaterally. No ankle edema is present. Chest x-ray obtained today reveals decrease in the right pleural effusion. IMPRESSION: 1. Acute severe traumatic brain injury, neurologically improving. 2. Methicillin resistant Staphylococcus epidemidis bacteremia, likely secondary to line infection. 3. Acute pulmonary insufficiency, improving. 4. Resolving right pleural effusion. PLAN: 1. Central venous catheter will be removed. Zosyn will be discontinued and vancomycin will be initi ated. 2. Continue with physical and occupational therapy.
[2017-02-19] MEDS: Acetaminophen 500 MG TAB PO SCH ×2 (17:59→22:46)
[2017-02-19] MEDS: Enoxaparin Sodium 40 MG/0.4 ML SYRINGE SC SCH (20:00)
[2017-02-20 04:30] LABS: Anion Gap 10 mmol/L (10-20); BUN (Urea Nitrogen) 14 mg/dL (8.9-20.6); Calc. Creatinine Clearance 150 mL/min (70-130); Calcium 8.7 mg/dL (7.8-10.44); Carbon Dioxide 25 mmol/L (22-29); Chloride 102 mmol/L (98-107); Estimated GFR-MDRD Greater than 90; Glucose 99 mg/dL (70-105); Magnesium 1.8 mg/dL (1.6-2.6); Phosphorus 4.4 mg/dL (2.3-4.7); Potassium 4.1 mmol/L (3.5-5.1); Sodium 133 mmol/L (136-145)
[2017-02-20] MEDS: Acetaminophen 500 MG TAB PO SCH ×4 (05:27→23:51)
[2017-02-20 05:37] LABS: Band 6 % (5-11); Eosinophils 7 % (0-10); Hemoglobin 8.8 g/dL (14.0-18.0); Lymphocytes 20 % (21-51); MDiff Complete? YES; Mean Corpuscular HGB CONC 33.5 g/dL (32.0-36.0); Mean Corpuscular Hemoglobin 29.7 pg (27.0-31.0); Mean Corpuscular Volume 88.6 fl (80.0-94.0); Mean Platelet Volume 6.5 fL (7.4-10.4); Metamyelocyte 4 % (0-0); Monocytes 7 % (0-10); Neutrophil 55 % (42-75); PLT Morphology Comment Appears Increased; Platelet Count 461 thou/uL (130-400); Polychromasia SLIGHT = 2-3 cells (100X) (0-2/hpf); RBC Distribution Width 13.8 % (11.5-14.5); Red Blood Cell (RBC) Count 2.96 mill/uL (4.70-6.10); White Blood Cell (WBC) Count 6.7 thou/uL (4.8-10.8)
[2017-02-20] MEDS: Vancomycin HCl 1 GM in Premix Bag 1 BAG IVPB SCH ×2 (06:08→18:56)
[2017-02-20] MEDS: Chlorhexidine Gluconate 15 ML UDCUP SSP SCH ×2 (10:16→20:47)
[2017-02-20] MEDS: Amantadine HCl 100 mg Capsule PO SCH (10:16)
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
[2017-02-20 14:27] LABS: Vancomycin, Trough 13.8 ug/mL
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
[2017-02-20] MEDS: Vancomycin HCl 1.25 GM in Sodium Chloride 0.9% 250 ML 250 ML IVPB SCH (19:47)
[2017-02-20] MEDS: Enoxaparin Sodium 40 MG/0.4 ML SYRINGE SC SCH (20:48)
[2017-02-21] MEDS: Vancomycin HCl 1.25 GM in Sodium Chloride 0.9% 250 ML 250 ML IVPB SCH ×3 (02:03→18:14)
[2017-02-21] MEDS: Acetaminophen 500 MG TAB PO SCH ×4 (06:19→23:09)
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
[2017-02-21] MEDS: Amantadine HCl 100 mg Capsule PO SCH (08:41)
[2017-02-21] MEDS: Chlorhexidine Gluconate 15 ML UDCUP SSP SCH ×2 (08:41→20:03)
--- NOTE | 2017-02-21 17:12 | PRG ---
DATE OF SERVICE: 02/21/2017 SUBJECTIVE: Mr. Barclay remains in coma. [place] Coma Scale today is [id number](T) He is tolerating tube feeds at goal, having normal bowel function. Urinary output is adequate. The patient has remained afebrile over the last 2 days. OBJECTIVE: VITAL SIGNS: Today includes blood pressure 142/99, pulse is 106, respiratory rate is 23. Maximum temperature in the last 24 hours is 98.9 degrees Fahrenheit. Oxygen saturation is 100% on FiO2 of 40%. HEENT: Reveals left pupil 5 mm, right 4 mm, both sluggish and reactive to light. HEART: Reveals regular rate with mild sinus tachycardia. No murmurs or gallops auscultated. CHEST: Lungs are clear to auscultation bilaterally. Breathing is regular and unlabored. Chest tube reveals no air leaks. 260 mL of straw-colored pleural fluid is returning in 24 hours. ABDOMEN: Soft, nontender and nondistended. MUSCULOSKELETAL: Reveals 5/5 in right upper and right lower extremities. Muscle strength is 4/5 strength in left upper and left lower extremities. IMPRESSION AND PLAN: 1. Acute severe traumatic brain injury, slowly improving. 2. Acute pulmonary insufficiency, improving. 3. Coma, improving. 4. Right pleural effusion, improving. Chest tube will be maintained in place at this time until the output is below 100 mL in 24 hours. MTDD
[2017-02-21 17:51] LABS: Vancomycin, Trough 22.5 ug/mL
[2017-02-21] MEDS: Vancomycin HCl 1 GM in Premix Bag 1 BAG IVPB SCH (19:59)
[2017-02-21] MEDS: Enoxaparin Sodium 40 MG/0.4 ML SYRINGE SC SCH (20:03)
[2017-02-22] MEDS: Vancomycin HCl 1 GM in Premix Bag 1 BAG IVPB SCH ×3 (03:37→20:09)
[2017-02-22] MEDS: Acetaminophen 500 MG TAB PO SCH ×4 (05:44→23:48)
[2017-02-22] MEDS: Chlorhexidine Gluconate 15 ML UDCUP SSP SCH ×2 (09:33→20:50)
[2017-02-22] MEDS: Amantadine HCl 100 mg Capsule PO SCH (09:33)
--- NOTE | 2017-02-22 12:56 | PRG ---
DATE OF SERVICE: 02/22/2017 ATTENDING PHYSICIAN: Dr. Tk Andino. SUBJECTIVE: Mr. Barclay remains stable in ICU. Tolerating enteral feedings at goal rate. Having no rmal bowel function. T-max is 100.1 last night. Right chest tube remains in place to waterseal. OBJECTIVE: VITAL SIGNS: Pulse 107, blood pressure 120/84, respirations 23, O2 sat 98%. HEENT: Healing wound to face. CARDIOVASCULAR: Mildly tachycardic at 100-110. PULMONARY: Clear to auscultation bilaterally. No respiratory distress. Right chest tube to waterse al. 260 mL output over the last 24 hours. ABDOMEN: Soft, nontender, nondistended. PEG tube in place with enteral feedings at goal rate. MUSCULOSKELETAL: Localizes to pain. Continues to be weaker in the left upper and left lower extremi ties. NEUROLOGIC: GCS 10, T4, V1, M5. Follows commands intermittently. ASSESSMENT AND PLAN: 1. Acute severe traumatic brain injury, slowly improving. Continue amantadine as ordered. Continue therapy. 2. Acute pulmonary insufficiency, improving. PLAN: 1. Continue pulmonary toilet. Wean O2 as tolerated. 2. Right pleural effusion, improving. Output 260 mL over 24 hours. Continue chest tube to water se al until output is below 100 mL in 24 hours. 3. Continue working with physical therapy. The patient's history, exam, assessment and plan were reviewed with Dr. Andino.
[2017-02-22 19:22] LABS: Vancomycin, Trough 18.3 ug/mL
[2017-02-22] MEDS: Enoxaparin Sodium 40 MG/0.4 ML SYRINGE SC SCH (20:50)
[2017-02-23] MEDS: Vancomycin HCl 1 GM in Premix Bag 1 BAG IVPB SCH ×3 (04:03→20:06)
[2017-02-23] MEDS: Acetaminophen 500 MG TAB PO SCH ×4 (05:45→23:01)
[2017-02-23] MEDS: Chlorhexidine Gluconate 15 ML UDCUP SSP SCH ×2 (09:26→20:06)
[2017-02-23] MEDS: Amantadine HCl 100 mg Capsule PO SCH (09:27)
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
[2017-02-23] MEDS: Enoxaparin Sodium 40 MG/0.4 ML SYRINGE SC SCH (20:06)
[2017-02-24] MEDS: Vancomycin HCl 1 GM in Premix Bag 1 BAG IVPB SCH ×2 (05:12→11:56)
[2017-02-24] MEDS: Acetaminophen 500 MG TAB PO SCH ×4 (06:11→23:45)
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
[2017-02-24] MEDS: Chlorhexidine Gluconate 15 ML UDCUP SSP SCH ×2 (09:50→20:11)
[2017-02-24] MEDS: Amantadine HCl 100 mg Capsule PO SCH (09:50)
[2017-02-24 11:30] LABS: Vancomycin, Trough 24.6 ug/mL
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
--- NOTE | 2017-02-24 17:35 | RAD ---
1 VIEW CHEST: Date: 02/24/17 COMPARISON: 02/17/14. HISTORY: Chest tube removal. FINDINGS: Redemonstration of tracheostomy. There are pleural and parenchymal changes in the right lung base. Mi nimal linear opacity in left lung base. Stable configuration of the cardiac silhouette. No pneumothor ax. IMPRESSION: Parenchymal change in right lung base. No pneumothorax. POS: [facility]
[2017-02-24] MEDS: Enoxaparin Sodium 40 MG/0.4 ML SYRINGE SC SCH (20:11)
[2017-02-24] MEDS: Vancomycin HCl 750 MG in Sodium Chloride 0.9% 250 ML 250 ML IVPB SCH (20:25)
[2017-02-25] MEDS: Vancomycin HCl 750 MG in Sodium Chloride 0.9% 250 ML 250 ML IVPB SCH (04:24)
[2017-02-25 05:08] LABS: Anion Gap 11 mmol/L (10-20); BUN (Urea Nitrogen) 11 mg/dL (8.9-20.6); Calc. Creatinine Clearance 152 mL/min (70-130); Calcium 8.6 mg/dL (7.8-10.44); Carbon Dioxide 24 mmol/L (22-29); Chloride 100 mmol/L (98-107); Estimated GFR-MDRD Greater than 90; Glucose 91 mg/dL (70-105); Magnesium 1.6 mg/dL (1.6-2.6); Phosphorus 4.5 mg/dL (2.3-4.7); Potassium 3.8 mmol/L (3.5-5.1); Sodium 131 mmol/L (136-145)
[2017-02-25] MEDS: Acetaminophen 500 MG TAB PO SCH ×3 (05:46→17:50)
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
[2017-02-25] MEDS ORDERED: levETIRAcetam 500 MG TAB PO SCH (09:00)
[2017-02-25] MEDS: Sulfameth/Trimethoprim DS 800-160mg TAB PO SCH ×2 (09:05→20:21)
[2017-02-25] MEDS: Amantadine HCl 100 mg Capsule PO SCH (09:05)
[2017-02-25] MEDS: Tamsulosin HCl 0.4 MG CAP PO SCH (09:05)
[2017-02-25] MEDS: Pantoprazole 40 MG GRANULES PACKET PER TUBE SCH (09:05)
[2017-02-25] MEDS: Chlorhexidine Gluconate 15 ML UDCUP SSP SCH ×2 (09:05→20:21)
[2017-02-25] MEDS: levETIRAcetam 500 mg/5 ml Oral Solution PER TUBE SCH ×2 (10:17→20:21)
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
[2017-02-25] MEDS: Enoxaparin Sodium 40 MG/0.4 ML SYRINGE SC SCH (20:20)
[2017-02-26] MEDS: Acetaminophen 500 MG TAB PO SCH ×4 (00:19→18:25)
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
[2017-02-26] MEDS: levETIRAcetam 500 mg/5 ml Oral Solution PER TUBE SCH ×2 (08:26→21:19)
[2017-02-26] MEDS: Tamsulosin HCl 0.4 MG CAP PO SCH (08:27)
[2017-02-26] MEDS: Amantadine HCl 100 mg Capsule PO SCH (08:27)
[2017-02-26] MEDS: Sulfameth/Trimethoprim DS 800-160mg TAB PO SCH ×2 (08:27→21:19)
[2017-02-26] MEDS: Pantoprazole 40 MG GRANULES PACKET PER TUBE SCH (08:27)
[2017-02-26] MEDS: Chlorhexidine Gluconate 15 ML UDCUP SSP SCH ×2 (12:14→21:20)
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
[2017-02-26] MEDS: Enoxaparin Sodium 40 MG/0.4 ML SYRINGE SC SCH (21:19)
[2017-02-27] MEDS: Acetaminophen 500 MG TAB PO SCH ×5 (00:25→23:14)
[2017-02-27] MEDS: Pantoprazole 40 MG GRANULES PACKET PER TUBE SCH (08:09)
[2017-02-27] MEDS: Amantadine HCl 100 mg Capsule PO SCH (08:09)
[2017-02-27] MEDS: Tamsulosin HCl 0.4 MG CAP PO SCH (08:09)
[2017-02-27] MEDS: Sulfameth/Trimethoprim DS 800-160mg TAB PO SCH ×2 (08:09→23:14)
[2017-02-27] MEDS: levETIRAcetam 500 mg/5 ml Oral Solution PER TUBE SCH ×2 (08:10→23:14)
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
[2017-02-27] MEDS: Chlorhexidine Gluconate 15 ML UDCUP SSP SCH ×2 (12:52→23:15)
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
[2017-02-27] MEDS: Enoxaparin Sodium 40 MG/0.4 ML SYRINGE SC SCH (23:14)
[2017-02-27] MEDS: Senokot S 8.6-50 MG TAB PO SCH (23:14)
[2017-02-28] MEDS: Acetaminophen 500 MG TAB PO SCH ×4 (06:38→23:45)
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
[2017-02-28 08:58] LABS: #Basophils 0.1 thou/uL (0.0-0.2); #Eosinphils 0.4 thou/uL (0.0-0.7); #Lymphocytes 1.6 thou/uL (1.20-3.40); #Monocytes 0.4 thou/uL (0.11-0.59); #Neutrophils 1.5 thou/uL (1.40-6.50); %Basophils 1.6 % (0.0-1.0); %Eosinophils 10.2 % (0.0-10.0); %Lymphocytes 41.1 % (21.0-51.0); %Monocytes 10.3 % (0.0-10.0); %Neutrophils 36.9 % (42.0-75.0); Hemoglobin 9.4 g/dL (14.0-18.0); Mean Corpuscular HGB CONC 33.4 g/dL (32.0-36.0); Mean Corpuscular Volume 86.8 fl (80.0-94.0); Mean Platelet Volume 5.9 fL (7.4-10.4); Platelet Count 508 thou/uL (130-400); RBC Distribution Width 14.9 % (11.5-14.5); Red Blood Cell (RBC) Count 3.23 mill/uL (4.70-6.10)
[2017-02-28] MEDS: Tamsulosin HCl 0.4 MG CAP PO SCH (09:00)
[2017-02-28] MEDS: Polyethylene Glycol 3350 17 GM Packet PER TUBE SCH (09:00)
[2017-02-28] MEDS: Sulfameth/Trimethoprim DS 800-160mg TAB PO SCH ×2 (09:01→23:21)
[2017-02-28] MEDS: Senokot S 8.6-50 MG TAB PO SCH (09:01)
[2017-02-28] MEDS: levETIRAcetam 500 mg/5 ml Oral Solution PER TUBE SCH ×2 (09:01→23:20)
[2017-02-28] MEDS: Amantadine HCl 100 mg Capsule PO SCH (09:01)
[2017-02-28] MEDS: Pantoprazole 40 MG GRANULES PACKET PER TUBE SCH (09:01)
[2017-02-28 09:19] LABS: Anion Gap 13 mmol/L (10-20); BUN (Urea Nitrogen) 13 mg/dL (8.9-20.6); Calc. Creatinine Clearance 110 mL/min (70-130); Calcium 9.3 mg/dL (7.8-10.44); Carbon Dioxide 20 mmol/L (22-29); Chloride 102 mmol/L (98-107); Estimated GFR-MDRD Greater than 90; Glucose 113 mg/dL (70-105); Magnesium 1.9 mg/dL (1.6-2.6); Phosphorus 5.3 mg/dL (2.3-4.7); Potassium 3.9 mmol/L (3.5-5.1); Sodium 131 mmol/L (136-145)
--- NOTE | 2017-02-28 10:58 | RAD ---
ABDOMEN 2 VIEWS: Date: 02/28/17 HISTORY: Ileus follow up FINDINGS: Supine and left lateral decubitus views of the abdomen demonstrate some gas and minimal fecal materia l within the colon with some dilatation of the sigmoid portion of the colon, which does not appear si gnificantly changed from the 02/14/17 study. Gastrostomy tube in place. No free intraperitoneal air. IMPRESSION: Some gas and fecal material and minimal fluid within the colon with dilatation of the sigmoid colon, but stable from prior exam of 02/14/17. No evidence for acute obstruction. Moderate solid fecal mater ial in the rectum with minimal dilatation, evidence for some constipation. POS: [facility]
[2017-02-28] MEDS: Chlorhexidine Gluconate 15 ML UDCUP SSP SCH ×2 (11:07→23:21)
[2017-02-28] MEDS ORDERED: Bisacodyl 10 MG SUPP PR SCH (18:15)
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
[2017-02-28] MEDS: Enoxaparin Sodium 40 MG/0.4 ML SYRINGE SC SCH (23:21)
[2017-03-01] MEDS: Acetaminophen 500 MG TAB PO SCH ×4 (07:56→18:09)
[2017-03-01] MEDS: Senokot S 8.6-50 MG TAB PO SCH ×3 (08:00→21:48)
[2017-03-01] MEDS: Amantadine HCl 100 mg Capsule PO SCH (09:46)
[2017-03-01] MEDS: Tamsulosin HCl 0.4 MG CAP PO SCH (09:46)
[2017-03-01] MEDS: Pantoprazole 40 MG GRANULES PACKET PER TUBE SCH (09:46)
[2017-03-01] MEDS: Chlorhexidine Gluconate 15 ML UDCUP SSP SCH ×2 (09:46→21:48)
[2017-03-01] MEDS: levETIRAcetam 500 mg/5 ml Oral Solution PER TUBE SCH ×2 (09:46→21:45)
[2017-03-01] MEDS: Sulfameth/Trimethoprim DS 800-160mg TAB PO SCH ×2 (09:46→21:45)
[2017-03-01] MEDS: Bisacodyl 10 MG SUPP PR SCH (09:50)
[2017-03-01] MEDS: Polyethylene Glycol 3350 17 GM Packet PER TUBE SCH (09:52)
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
[2017-03-01] MEDS: Enoxaparin Sodium 40 MG/0.4 ML SYRINGE SC SCH (21:45)
[2017-03-02] MEDS: Acetaminophen 500 MG TAB PO SCH ×4 (00:02→17:32)
[2017-03-02] MEDS: Bisacodyl 10 MG SUPP PR SCH (09:41)
[2017-03-02] MEDS: Amantadine HCl 100 mg Capsule PO SCH (09:42)
[2017-03-02] MEDS: Pantoprazole 40 MG GRANULES PACKET PER TUBE SCH (09:42)
[2017-03-02] MEDS: levETIRAcetam 500 mg/5 ml Oral Solution PER TUBE SCH ×2 (09:42→20:55)
[2017-03-02] MEDS: Senokot S 8.6-50 MG TAB PO SCH ×2 (09:42→20:55)
[2017-03-02] MEDS: Polyethylene Glycol 3350 17 GM Packet PER TUBE SCH (09:42)
[2017-03-02] MEDS: Tamsulosin HCl 0.4 MG CAP PO SCH (09:42)
[2017-03-02] MEDS: Sulfameth/Trimethoprim DS 800-160mg TAB PO SCH ×2 (09:43→20:55)
[2017-03-02] MEDS: Chlorhexidine Gluconate 15 ML UDCUP SSP SCH ×3 (10:20→21:57)
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
[2017-03-03] MEDS: Acetaminophen 500 MG TAB PO SCH ×4 (00:10→18:45)
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
[2017-03-03] MEDS: Bisacodyl 10 MG SUPP PR SCH (09:13)
[2017-03-03] MEDS: levETIRAcetam 500 mg/5 ml Oral Solution PER TUBE SCH ×2 (09:18→20:40)
[2017-03-03] MEDS: Amantadine HCl 100 mg Capsule PO SCH (09:18)
[2017-03-03] MEDS: Pantoprazole 40 MG GRANULES PACKET PER TUBE SCH (09:18)
[2017-03-03] MEDS: Chlorhexidine Gluconate 15 ML UDCUP SSP SCH ×2 (09:18→20:40)
[2017-03-03] MEDS: Senokot S 8.6-50 MG TAB PO SCH ×2 (09:19→20:41)
[2017-03-03] MEDS: Tamsulosin HCl 0.4 MG CAP PO SCH (09:19)
[2017-03-03] MEDS: Polyethylene Glycol 3350 17 GM Packet PER TUBE SCH (09:19)
[2017-03-03] MEDS: Sulfameth/Trimethoprim DS 800-160mg TAB PO SCH ×2 (09:19→20:39)
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
--- NOTE | 2017-03-03 10:46 | PRG ---
DATE OF SERVICE: 03/03/2017 This is a 15 minute subsequent patient progress note in which greater than 50% of the exam was spent in counseling and coordinating patient's care. The remainder of the exam was spent in review of nicola ent's medical records and appropriate imaging studies. Mr. Barclay is well known to our practice. H ken remains at neurologic baseline, though he is minimally following commands at this time. His exam i s waxing and waning. We have ordered high volume 30 mL lumbar puncture with appropriate labs includi ng cytology, Gram stain, opening and closing pressures, culturing and other testing. We will closely monitor his neurologic exam. Should we see significant improvement following the high volume lumbar puncture then consideration will be made for placement of a right COSTUMED CHARACTER ENTERTAINER shunt later this week. Review of patient's CT from yesterday shows ventriculomegaly compared to patient's initial CT scans. We rao l follow up on his exam and CSF sampling and testing once it has been completed.
[2017-03-03] MEDS ORDERED: Midazolam HCl 2 mg/2 ml Vial ONE (13:34)
[2017-03-03 16:13] LABS: Color Of CSF Supernatant COLORLESS (Colorless); Tube # 2; Unspun CSF Color COLORLESS (Colorless)
[2017-03-03 16:20] LABS: CSF Source CSF; Clarity Clear (Clear); RBC Count - Manual 65 /cumm (None Seen); Tube # 1; WBC/NonHematics Count - Manual 20 /cumm (0-5)
[2017-03-03 16:25] LABS: CSF, Glucose 50 mg/dl (40-70); CSF, Protein 28 mg/dL (15-40)
[2017-03-03 17:11] LABS: Cell Count Non Hematic 7 %; Lymphocytes 93 %
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
[2017-03-04] MEDS: Acetaminophen 500 MG TAB PO SCH ×4 (00:41→17:21)
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
[2017-03-04] MEDS: levETIRAcetam 500 mg/5 ml Oral Solution PER TUBE SCH ×2 (08:54→20:41)
[2017-03-04] MEDS: Tamsulosin HCl 0.4 MG CAP PO SCH (08:54)
[2017-03-04] MEDS: Sulfameth/Trimethoprim DS 800-160mg TAB PO SCH ×2 (08:54→20:41)
[2017-03-04] MEDS: Senokot S 8.6-50 MG TAB PO SCH ×2 (08:55→21:04)
[2017-03-04] MEDS: Amantadine HCl 100 mg Capsule PO SCH (08:55)
[2017-03-04] MEDS: Chlorhexidine Gluconate 15 ML UDCUP SSP SCH ×2 (08:55→20:41)
[2017-03-04] MEDS: Pantoprazole 40 MG GRANULES PACKET PER TUBE SCH (08:55)
[2017-03-04] MEDS: Polyethylene Glycol 3350 17 GM Packet PER TUBE SCH (08:55)
[2017-03-04 09:09] LABS: Anion Gap 12 mmol/L (10-20); BUN (Urea Nitrogen) 16 mg/dL (8.9-20.6); Calc. Creatinine Clearance 111 mL/min (70-130); Calcium 9.2 mg/dL (7.8-10.44); Carbon Dioxide 23 mmol/L (22-29); Chloride 101 mmol/L (98-107); Estimated GFR-MDRD Greater than 90; Glucose 98 mg/dL (70-105); Magnesium 1.9 mg/dL (1.6-2.6); Phosphorus 4.9 mg/dL (2.3-4.7); Potassium 3.9 mmol/L (3.5-5.1); Sodium 132 mmol/L (136-145)
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
[2017-03-04] MEDS: Bisacodyl 10 MG SUPP PR SCH (11:59)
[2017-03-04] MEDS: Enoxaparin Sodium 40 MG/0.4 ML SYRINGE SC SCH (20:40)
[2017-03-05] MEDS: Acetaminophen 500 MG TAB PO SCH ×4 (00:12→18:47)
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
[2017-03-05] MEDS: Amantadine HCl 100 mg Capsule PO SCH (10:26)
[2017-03-05] MEDS: Polyethylene Glycol 3350 17 GM Packet PER TUBE SCH (10:26)
[2017-03-05] MEDS: Senokot S 8.6-50 MG TAB PO SCH ×2 (10:26→22:11)
[2017-03-05] MEDS: Tamsulosin HCl 0.4 MG CAP PO SCH (10:26)
[2017-03-05] MEDS: levETIRAcetam 500 mg/5 ml Oral Solution PER TUBE SCH ×2 (10:27→22:10)
[2017-03-05] MEDS: Bisacodyl 10 MG SUPP PR SCH (10:27)
[2017-03-05] MEDS: Pantoprazole 40 MG GRANULES PACKET PER TUBE SCH (10:27)
[2017-03-05] MEDS: Chlorhexidine Gluconate 15 ML UDCUP SSP SCH ×2 (10:49→22:11)
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
[2017-03-06] MEDS: Acetaminophen 500 MG TAB PO SCH ×4 (01:05→18:33)
[2017-03-06] MEDS ORDERED: Bacitracin Zinc Ointment 30 gm TUBE ONE (06:26)
[2017-03-06] MEDS ORDERED: Lidocaine 1% w/Epinephrine 1:200K 30 ML VIAL ONE (06:26)
[2017-03-06] MEDS ORDERED: Bupivacaine/Epinephrine 0.25% 30 ML VIAL ONE (06:26)
[2017-03-06] MEDS ORDERED: Sodium Chloride 0.9% 10 ML ONE (06:27)
[2017-03-06] MEDS ORDERED: Phenylephrine 10 MG/NS 250 ML 0 ML ONE (07:13)
[2017-03-06] MEDS ORDERED: Promethazine HCl 25 MG/ML VIAL ONE (07:13)
[2017-03-06] MEDS ORDERED: CEFAZOLIN/Water 2 GM/20 ML SYRINGE ONE (07:20)
[2017-03-06] MEDS ORDERED: Fentanyl 100 MCG/2 ML VIAL ONE (07:26)
--- NOTE | 2017-03-06 08:32 | CT ---
PRELIMINARY REPORT/[facility]/EMERGENCY AFTER HOURS PROCEDURE: EXAM: CT Head Without Intravenous Contrast CLINICAL HISTORY: 41 years old, male; Screening exam; Patient HX: Surgical planning for svp group director shunt TECHNIQUE: Axial computed tomography images of the head/brain without intravenous contrast. COMPARISON: CT Brain WO Con 2017-03-01 11:10 FINDINGS: Mildly limited due to streak artifact. Ventricular size is is grossly stable. Ventricular white matter disease is grossly stable. Left front al and right occipital infarctions are grossly stable. Question trace left frontal sulcal subarachnoid hemorrhage images 26-28 versus artifact in Left frontal bone fracture traversing the left orbital roof and planum sphenoidale this is stable lef t sphenoid wing fracture is grossly stable. Left medial orbital wall fracture is stable nasal bone/na dave septal fractures are stable Air-fluid levels in the sphenoid sinuses and posterior left ethmoid air cells are stable. Mild polypo id mucosal thickening observed. Mastoid fluid bilaterally is grossly stable IMPRESSION: Grossly stable noncontrast CT appearance of the brain Trace left frontal convexity subarachnoid hemorrhage versus artifact. Thank you for allowing us to participate in the care of your patient. Dictated and Authenticated by: Davonte Urrutia MD 03/06/2017 4:54 AM Central Time ([place] & [place]) FINAL REPORT EMERGENT AFTER HOURS CT HEAD: Date: 03-06-17 History: Surgical planning. SCORING MACHINE OPERATOR shunt placement. Comparison: 03-01-17 IMPRESSION: 1. Increased density in the high left frontal sulcus which may be related to a small amount of subara chnoid hemorrhage. This was not present on prior exam. 2. Stable low density areas within the bifrontal lobes, greater on the left, as well as in the right occipital lobe, unchanged in appearance or distribution compared to the prior study and may be relate d to areas of prior hemorrhagic contusion. 3. Stable mild ventriculomegaly. 4. Stable fracture involving the left frontal bone which extends and traverses the left orbital roof as well as the planum sphenoidale and left wing of the sphenoid. Left medial orbital wall fracture is also again present with stable left nasal bone fracture. 5. Calcification of mastoid air cells bilaterally, much greater on the right. 6. Calcification and mucosal thickening in the paranasal sinuses. 7. Findings in agreement with preliminary report by [facility]. POS: [facility]
[2017-03-06] MEDS ORDERED: ePHEDrine/0.9% NaCl/PF SYRINGE 50 mg/10 ml ONE ×2 (08:54→15:49)
[2017-03-06] MEDS ORDERED: Morphine Sulfate 2 MG/ML SYRINGE SLOW IVP PRN (09:58)
[2017-03-06] MEDS ORDERED: Ondansetron HCl/PF 4 MG/2 ML Vial IVP PRN (09:58)
[2017-03-06] MEDS ORDERED: Promethazine HCl 25 MG/ML VIAL IM PRN (09:58)
[2017-03-06] MEDS ORDERED: HYDROmorphone 2 MG/ML VIAL SLOW IVP PRN (09:58)
[2017-03-06] MEDS ORDERED: Promethazine HCl 25 MG/ML VIAL SLOW IVP PRN (09:58)
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
[2017-03-06] MEDS: Polyethylene Glycol 3350 17 GM Packet PER TUBE SCH (11:00)
[2017-03-06] MEDS: Amantadine HCl 100 mg Capsule PO SCH (11:00)
[2017-03-06] MEDS: Pantoprazole 40 MG GRANULES PACKET PER TUBE SCH (11:00)
[2017-03-06] MEDS: Senokot S 8.6-50 MG TAB PO SCH ×2 (11:00→21:38)
[2017-03-06] MEDS: levETIRAcetam 500 mg/5 ml Oral Solution PER TUBE SCH ×2 (11:00→21:37)
[2017-03-06] MEDS: Tamsulosin HCl 0.4 MG CAP PO SCH (11:00)
[2017-03-06] MEDS: CEFAZOLIN 1 GM, Syringe 2.5 ML in Sterile Water 7.5 ML SLOW IVP SCH ×2 (11:01→18:33)
--- NOTE | 2017-03-06 11:03 | OP ---
OR: 11. WOUND TYPE: Type 1 wound. SURGEON: Serafin Maria M.D. OTHER SURGEON: Scott Pineda M.D. MINING CONSULTANT: Aly Partida PA-C. PREPROCEDURE DIAGNOSIS: Communicating hydrocephalus (posttraumatic). POST-PROCEDURE DIAGNOSIS: Communicating hydrocephalus (posttraumatic). PROCEDURE: Placement of right-sided ventriculoperitoneal shunt with valve programmed at 1.0. DESCRIPTION OF PROCEDURE: After informed consent was obtained from the family and the nature of why we were placing the shunt conveyed to them following improvement clinically and quantifying of his op ening and closing pressure being elevated and the patient was taken to OR 11. The right frontal and temporal and occipital regions were prepped as were the neck and thorax and abdomen for placement of a shunt. A programmable valve was set at 1.0. Sterile cleansing, preparation and draping were perfo rmed. A right frontal wound was then made in the region of [place]. Following proper prepara tion and draping and pause, the right frontal region was opened in a semilunar fashion and a wally hol e fashion, a small incision was made as well in the right postauricular region. Peritoneal catheter was fed from the retroauricular wound down to the abdomen where Dr. Pineda received the peritoneal c atheter. The peritoneal catheter was then brought proximally to the right [place] region and valve attached. The dura was coagulated and opened and ventricular catheter passed with CSF release under moderate pressure. This was connected. Flow was confirmed. Copious irrigation occurred. The wound was then closed in anatomic layers. The patient then emerged from anesthesia.
[2017-03-06] MEDS: Bisacodyl 10 MG SUPP PR SCH (11:18)
[2017-03-06] MEDS: Chlorhexidine Gluconate 15 ML UDCUP SSP SCH ×2 (11:18→21:38)
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
[2017-03-06] MEDS ORDERED: CEFAZOLIN 1 GM in Sodium Chloride 0.9% 100 ML IVPB SCH (14:00)
[2017-03-06] MEDS ORDERED: PHENYLEPHRINE-NS 100 MCG/ML 10 ML SYRINGE ONE (15:49)
[2017-03-06] MEDS ORDERED: Ondansetron HCl/PF 4 MG/2 ML Vial ONE (15:49)
[2017-03-06] MEDS ORDERED: Glycopyrrolate 0.2 MG/ML 5 ML SYRINGE ONE (15:49)
[2017-03-06] MEDS ORDERED: Dexamethasone 20 MG/5 ML VIAL ONE (15:49)
[2017-03-06] MEDS ORDERED: Propofol 200 MG/20 ML VIAL ONE (15:49)
[2017-03-06] MEDS ORDERED: Lidocaine 1% PF 5 ML VIAL ONE (15:49)
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
[2017-03-07] MEDS: Acetaminophen 500 MG TAB PO SCH ×4 (00:50→18:08)
[2017-03-07] MEDS: CEFAZOLIN 1 GM, Syringe 2.5 ML in Sterile Water 7.5 ML SLOW IVP SCH (02:09)
[2017-03-07 09:20] LABS: Anion Gap 13 mmol/L (10-20); BUN (Urea Nitrogen) 16 mg/dL (8.9-20.6); Calc. Creatinine Clearance 100 mL/min (70-130); Calcium 9.5 mg/dL (7.8-10.44); Carbon Dioxide 23 mmol/L (22-29); Chloride 110 mmol/L (98-107); Estimated GFR-MDRD Greater than 90; Glucose 108 mg/dL (70-105); Magnesium 2.3 mg/dL (1.6-2.6); Phosphorus 4.4 mg/dL (2.3-4.7); Potassium 3.9 mmol/L (3.5-5.1); Sodium 142 mmol/L (136-145)
--- NOTE | 2017-03-07 09:28 | PRG ---
DATE OF SERVICE: 03/07/2017 Mr. Barclay is now postoperative day #1, having undergone a placement of a right ventricular peritone al shunt with Dr. Mraia on 03/06/2017. The patient is sleeping in bed, but when I enter he becomes much more alert. He attempts to follow commands in all extremities, although this is limited by Engl leanne is his second language. He moves all 4 extremities, although continues to move the left upper ex tremity slower. He is moving all extremities with more vigor today. The patient's postoperative inc isions remain without active drainage with scant drainage on the dressing. We will continue to monit or the patient's exam, although it does appear that he is improved currently.
[2017-03-07] MEDS: levETIRAcetam 500 mg/5 ml Oral Solution PER TUBE SCH ×2 (09:34→21:00)
[2017-03-07] MEDS: Polyethylene Glycol 3350 17 GM Packet PER TUBE SCH (09:34)
[2017-03-07] MEDS: Pantoprazole 40 MG GRANULES PACKET PER TUBE SCH (09:34)
[2017-03-07] MEDS: Senokot S 8.6-50 MG TAB PO SCH ×2 (09:34→21:00)
[2017-03-07] MEDS: Amantadine HCl 100 mg Capsule PO SCH (09:34)
[2017-03-07] MEDS: Tamsulosin HCl 0.4 MG CAP PO SCH (09:34)
[2017-03-07] MEDS: Chlorhexidine Gluconate 15 ML UDCUP SSP SCH ×2 (09:34→21:01)
[2017-03-07] MEDS: Bisacodyl 10 MG SUPP PR SCH (12:28)
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
[2017-03-08] MEDS: Acetaminophen 500 MG TAB PO SCH ×5 (00:46→23:21)
[2017-03-08] MEDS: levETIRAcetam 500 mg/5 ml Oral Solution PER TUBE SCH ×2 (09:29→22:51)
[2017-03-08] MEDS: Tamsulosin HCl 0.4 MG CAP PO SCH (09:29)
[2017-03-08] MEDS: Amantadine HCl 100 mg Capsule PO SCH (09:29)
[2017-03-08] MEDS: Chlorhexidine Gluconate 15 ML UDCUP SSP SCH ×2 (09:29→22:51)
[2017-03-08] MEDS: Bisacodyl 10 MG SUPP PR SCH (09:29)
[2017-03-08] MEDS: Pantoprazole 40 MG GRANULES PACKET PER TUBE SCH (09:29)
[2017-03-08] MEDS: Polyethylene Glycol 3350 17 GM Packet PER TUBE SCH (09:30)
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
[2017-03-08] MEDS: Senokot S 8.6-50 MG TAB PO SCH ×2 (09:51→22:52)
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
--- NOTE | 2017-03-08 10:43 | PRG ---
DATE OF SERVICE: 03/08/2017 PROGRESS NOTE Mr. Washington was seen this morning, reviewed his imaging and clinical history. Given his two nidus of ureteral calculi, I advised regarding ureteral stent. The patient agreed. Called by preop nurse as he had resolution of pain , subsequent pressure and dysuria which resolved after he passed two large stones. I did examine the stone at bedside, it is consistent with what I see on the CAT scan. KUB was ordered which demonstrates no evidence of calcific density in the course of previous CT location of the stones. He is pain free, doing well. Discussed case with Hospitalist, patient will be discharged home, surgery canceled. Informed patient to follow up with Dr. Kearns in the next 2-3 weeks. He will be discharged with empiric antibiotic therapy for 7 days. [facility]
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
[2017-03-09] MEDS: Acetaminophen 500 MG TAB PO SCH ×3 (06:41→18:27)
--- NOTE | 2017-03-09 08:18 | PRG ---
DATE OF SERVICE: 03/09/2017 I saw Mr. Barclay in his hospital room this morning. He is resting comfortably. He is very purposef ul with both upper extremities. The left arm is starting to move more and more over time. His eyes open as I entered the room. He is holding and manipulating the PEG tube. He is not pulling it out, but it is concerning. Incisions from the THERMODYNAMICIST shunt are still dressed on the head and the abdominal in cision is open and looks intact. I think Mr. Barclay' neurological examination is improved since the shunting. He will continue to be followed until there is placement available to him and the dressings can be removed.
[2017-03-09] MEDS: Amantadine HCl 100 mg Capsule PO SCH (09:12)
[2017-03-09] MEDS: Polyethylene Glycol 3350 17 GM Packet PER TUBE SCH (09:13)
[2017-03-09] MEDS: Tamsulosin HCl 0.4 MG CAP PO SCH (09:13)
[2017-03-09] MEDS: Pantoprazole 40 MG GRANULES PACKET PER TUBE SCH (09:13)
[2017-03-09] MEDS: Bisacodyl 10 MG SUPP PR SCH (09:13)
[2017-03-09] MEDS: Senokot S 8.6-50 MG TAB PO SCH (09:13)
[2017-03-09] MEDS: levETIRAcetam 500 mg/5 ml Oral Solution PER TUBE SCH ×2 (09:15→21:43)
[2017-03-09] MEDS: Chlorhexidine Gluconate 15 ML UDCUP SSP SCH ×2 (09:16→21:43)
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
[2017-03-10] MEDS: Acetaminophen 500 MG TAB PO SCH ×5 (00:11→22:42)
[2017-03-10] MEDS: Senokot S 8.6-50 MG TAB PO SCH ×3 (00:13→22:43)
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
[2017-03-10] MEDS: Chlorhexidine Gluconate 15 ML UDCUP SSP SCH ×2 (08:10→22:43)
[2017-03-10] MEDS: Pantoprazole 40 MG GRANULES PACKET PER TUBE SCH (08:10)
[2017-03-10] MEDS: Amantadine HCl 100 mg Capsule PO SCH (08:10)
[2017-03-10] MEDS: Tamsulosin HCl 0.4 MG CAP PO SCH (08:10)
[2017-03-10] MEDS: Bisacodyl 10 MG SUPP PR SCH (08:10)
[2017-03-10] MEDS: Polyethylene Glycol 3350 17 GM Packet PER TUBE SCH (08:11)
[2017-03-10] MEDS: levETIRAcetam 500 mg/5 ml Oral Solution PER TUBE SCH ×2 (08:54→22:42)
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
[2017-03-11] MEDS: Acetaminophen 500 MG TAB PO SCH ×4 (05:37→23:23)
[2017-03-11] MEDS: Pantoprazole 40 MG GRANULES PACKET PER TUBE SCH (08:50)
[2017-03-11] MEDS: Senokot S 8.6-50 MG TAB PO SCH ×2 (08:50→23:22)
[2017-03-11] MEDS: Polyethylene Glycol 3350 17 GM Packet PER TUBE SCH (08:50)
[2017-03-11] MEDS: Amantadine HCl 100 mg Capsule PO SCH (08:50)
[2017-03-11] MEDS: Tamsulosin HCl 0.4 MG CAP PO SCH (08:50)
[2017-03-11] MEDS: Chlorhexidine Gluconate 15 ML UDCUP SSP SCH ×2 (08:51→23:24)
[2017-03-11] MEDS: Bisacodyl 10 MG SUPP PR SCH (08:51)
[2017-03-11] MEDS: levETIRAcetam 500 mg/5 ml Oral Solution PER TUBE SCH ×2 (09:15→23:23)
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
--- NOTE | 2017-03-11 10:38 | PRG ---
DATE OF SERVICE: 03/11/2017 Mr. Barclay is now 5 days out from placement of right frontal ventriculoperitoneal shunt. Neurologic ally continues to be improved. He is asleep this morning when I see him and I am pleased overall wit h how he is doing. I would be fine with reinitiation of Lovenox.
[2017-03-11 13:30] VITALS: BMI 21.2
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
[2017-03-12] MEDS: Acetaminophen 500 MG TAB PO SCH ×4 (06:10→22:53)
--- NOTE | 2017-03-12 09:05 | PRG ---
DATE OF SERVICE: 03/12/2017 SUBJECTIVE: Mr. Barclay is now postoperative day #6, having undergone a right GRANITE FABRICATOR shunt placement. T he patient minimally opens his eyes; however, is much more quick to move the bilateral upper extremit ies, especially into the left upper extremity. This is an improvement from his previous exam before his shunt placement. Currently, he again remained stable postoperatively. His incisions are healing well and closed with raquel. He has been reinitiated on Lovenox and remains on Keppra. The patien t is recovering well postoperatively. Please call with any questions or changes in patient's neurolo gic exam.
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
[2017-03-12] MEDS: Bisacodyl 10 MG SUPP PR SCH (09:29)
[2017-03-12] MEDS: Chlorhexidine Gluconate 15 ML UDCUP SSP SCH ×2 (09:29→22:53)
[2017-03-12] MEDS: Amantadine HCl 100 mg Capsule PO SCH (09:29)
[2017-03-12] MEDS: Polyethylene Glycol 3350 17 GM Packet PER TUBE SCH (09:30)
[2017-03-12] MEDS: Pantoprazole 40 MG GRANULES PACKET PER TUBE SCH (09:30)
[2017-03-12] MEDS: levETIRAcetam 500 mg/5 ml Oral Solution PER TUBE SCH ×2 (09:30→22:53)
[2017-03-12] MEDS: Senokot S 8.6-50 MG TAB PO SCH ×2 (09:30→22:55)
[2017-03-12] MEDS: Tamsulosin HCl 0.4 MG CAP PO SCH (09:30)
[2017-03-12] MEDS: Enoxaparin Sodium 40 MG/0.4 ML SYRINGE SC SCH (09:30)
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
[2017-03-13] MEDS: Acetaminophen 500 MG TAB PO SCH ×3 (06:56→17:46)
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
[2017-03-13] MEDS: Amantadine HCl 100 mg Capsule PO SCH (09:14)
[2017-03-13] MEDS: levETIRAcetam 500 mg/5 ml Oral Solution PER TUBE SCH ×2 (09:14→22:28)
[2017-03-13] MEDS: Enoxaparin Sodium 40 MG/0.4 ML SYRINGE SC SCH (09:14)
[2017-03-13] MEDS: Pantoprazole 40 MG GRANULES PACKET PER TUBE SCH (09:14)
[2017-03-13] MEDS: Tamsulosin HCl 0.4 MG CAP PO SCH (09:14)
[2017-03-13] MEDS: Chlorhexidine Gluconate 15 ML UDCUP SSP SCH ×2 (09:15→22:28)
[2017-03-13] MEDS: Senokot S 8.6-50 MG TAB PO SCH ×2 (09:15→22:32)
[2017-03-13] MEDS: Polyethylene Glycol 3350 17 GM Packet PER TUBE SCH (09:15)
[2017-03-13] MEDS: Bisacodyl 10 MG SUPP PR SCH (09:15)
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
[2017-03-14] MEDS: Acetaminophen 500 MG TAB PO SCH ×5 (01:18→23:49)
[2017-03-14] MEDS: Chlorhexidine Gluconate 15 ML UDCUP SSP SCH ×2 (08:57→21:47)
[2017-03-14] MEDS: Enoxaparin Sodium 40 MG/0.4 ML SYRINGE SC SCH (08:57)
[2017-03-14] MEDS: Bisacodyl 10 MG SUPP PR SCH (08:57)
[2017-03-14] MEDS: Amantadine HCl 100 mg Capsule PO SCH (08:57)
[2017-03-14] MEDS: Pantoprazole 40 MG GRANULES PACKET PER TUBE SCH (08:57)
[2017-03-14] MEDS: Tamsulosin HCl 0.4 MG CAP PO SCH (08:57)
[2017-03-14] MEDS: Senokot S 8.6-50 MG TAB PO SCH ×2 (08:58→21:48)
[2017-03-14] MEDS: Polyethylene Glycol 3350 17 GM Packet PER TUBE SCH (08:58)
[2017-03-14] MEDS: levETIRAcetam 500 mg/5 ml Oral Solution PER TUBE SCH ×2 (08:58→21:47)
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
[2017-03-15] MEDS: Acetaminophen 500 MG TAB PO SCH ×3 (06:20→17:57)
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
[2017-03-15] MEDS: Enoxaparin Sodium 40 MG/0.4 ML SYRINGE SC SCH (09:37)
[2017-03-15] MEDS: Chlorhexidine Gluconate 15 ML UDCUP SSP SCH ×2 (09:37→22:19)
[2017-03-15] MEDS: Amantadine HCl 100 mg Capsule PO SCH (09:38)
[2017-03-15] MEDS: Bisacodyl 10 MG SUPP PR SCH (09:38)
[2017-03-15] MEDS: Pantoprazole 40 MG GRANULES PACKET PER TUBE SCH (09:39)
[2017-03-15] MEDS: levETIRAcetam 500 mg/5 ml Oral Solution PER TUBE SCH ×2 (09:39→22:19)
[2017-03-15] MEDS: Tamsulosin HCl 0.4 MG CAP PO SCH (09:40)
[2017-03-15] MEDS: Polyethylene Glycol 3350 17 GM Packet PER TUBE SCH (09:40)
[2017-03-15] MEDS: Senokot S 8.6-50 MG TAB PO SCH ×2 (09:40→22:16)
[2017-03-16] MEDS: Acetaminophen 500 MG TAB PO SCH ×5 (01:08→23:59)
[2017-03-16 08:30] LABS: #Basophils 0.1 thou/uL (0.0-0.2); #Eosinphils 0.2 thou/uL (0.0-0.7); #Lymphocytes 1.2 thou/uL (1.20-3.40); #Monocytes 0.4 thou/uL (0.11-0.59); #Neutrophils 1.7 thou/uL (1.40-6.50); %Basophils 1.6 % (0.0-1.0); %Eosinophils 6.1 % (0.0-10.0); %Lymphocytes 33.9 % (21.0-51.0); %Monocytes 10.5 % (0.0-10.0); Hemoglobin 9.2 g/dL (14.0-18.0); Mean Corpuscular HGB CONC 34.5 g/dL (32.0-36.0); Mean Corpuscular Hemoglobin 29.8 pg (27.0-31.0); Mean Corpuscular Volume 86.3 fl (80.0-94.0); Mean Platelet Volume 6.2 fL (7.4-10.4); Platelet Count 244 thou/uL (130-400); RBC Distribution Width 15.3 % (11.5-14.5); Red Blood Cell (RBC) Count 3.09 mill/uL (4.70-6.10); White Blood Cell (WBC) Count 3.6 thou/uL (4.8-10.8)
[2017-03-16 08:49] LABS: Anion Gap 12 mmol/L (10-20); BUN (Urea Nitrogen) 11 mg/dL (8.9-20.6); Calc. Creatinine Clearance 132 mL/min (70-130); Calcium 9.2 mg/dL (7.8-10.44); Carbon Dioxide 23 mmol/L (22-29); Chloride 95 mmol/L (98-107); Estimated GFR-MDRD Greater than 90; Glucose 120 mg/dL (70-105); Magnesium 1.6 mg/dL (1.6-2.6); Phosphorus 5.4 mg/dL (2.3-4.7); Sodium 126 mmol/L (136-145)
[2017-03-16] MEDS: Amantadine HCl 100 mg Capsule PO SCH (09:36)
[2017-03-16] MEDS: levETIRAcetam 500 mg/5 ml Oral Solution PER TUBE SCH ×2 (09:37→20:43)
[2017-03-16] MEDS: Enoxaparin Sodium 40 MG/0.4 ML SYRINGE SC SCH (09:37)
[2017-03-16] MEDS: Bisacodyl 10 MG SUPP PR SCH (09:37)
[2017-03-16] MEDS: Senokot S 8.6-50 MG TAB PO SCH ×2 (09:38→20:43)
[2017-03-16] MEDS: Polyethylene Glycol 3350 17 GM Packet PER TUBE SCH (09:38)
[2017-03-16] MEDS: Pantoprazole 40 MG GRANULES PACKET PER TUBE SCH (09:38)
[2017-03-16] MEDS: Tamsulosin HCl 0.4 MG CAP PO SCH (09:38)
[2017-03-16] MEDS: Chlorhexidine Gluconate 15 ML UDCUP SSP SCH ×2 (09:39→20:43)
--- NOTE | 2017-03-16 11:28 | RAD ---
CHEST 1 VIEW: Date: 03/16/17 HISTORY: Tachycardia. COMPARISON: Chest 1 view dated 02/24/17. FINDINGS: Tracheostomy tube is in position. Lungs are hypoinflated. Small right effusion and atelectatic change s. IMPRESSION: Small right effusion and atelectatic changes are similar. POS: [facility]
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
[2017-03-17] MEDS: Acetaminophen 500 MG TAB PO SCH ×3 (06:06→18:02)
[2017-03-17] MEDS: Chlorhexidine Gluconate 15 ML UDCUP SSP SCH ×2 (09:16→20:47)
[2017-03-17] MEDS: Amantadine HCl 100 mg Capsule PO SCH (09:16)
[2017-03-17] MEDS: Pantoprazole 40 MG GRANULES PACKET PER TUBE SCH (09:16)
[2017-03-17] MEDS: Tamsulosin HCl 0.4 MG CAP PO SCH (09:17)
[2017-03-17] MEDS: levETIRAcetam 500 mg/5 ml Oral Solution PER TUBE SCH ×2 (09:17→20:47)
[2017-03-17] MEDS: Enoxaparin Sodium 40 MG/0.4 ML SYRINGE SC SCH (09:17)
[2017-03-17] MEDS: Senokot S 8.6-50 MG TAB PO SCH ×2 (09:17→20:47)
[2017-03-17] MEDS: Polyethylene Glycol 3350 17 GM Packet PER TUBE SCH (09:17)
[2017-03-17] MEDS: Bisacodyl 10 MG SUPP PR SCH (09:25)
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
[2017-03-18] MEDS: Acetaminophen 500 MG TAB PO SCH ×5 (00:14→23:46)
[2017-03-18 06:30] LABS: Anion Gap 12 mmol/L (10-20); BUN (Urea Nitrogen) 12 mg/dL (8.9-20.6); Calc. Creatinine Clearance 116 mL/min (70-130); Calcium 9.5 mg/dL (7.8-10.44); Carbon Dioxide 23 mmol/L (22-29); Chloride 97 mmol/L (98-107); Estimated GFR-MDRD Greater than 90; Glucose 114 mg/dL (70-105); Magnesium 2.1 mg/dL (1.6-2.6); Phosphorus 5.9 mg/dL (2.3-4.7); Potassium 4.2 mmol/L (3.5-5.1); Sodium 128 mmol/L (136-145)
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
[2017-03-18] MEDS: Sodium Chloride 1 GM TAB PO SCH ×2 (09:56→20:25)
[2017-03-18] MEDS: Pantoprazole 40 MG GRANULES PACKET PER TUBE SCH (09:57)
[2017-03-18] MEDS: Senokot S 8.6-50 MG TAB PO SCH ×2 (09:57→20:28)
[2017-03-18] MEDS: Tamsulosin HCl 0.4 MG CAP PO SCH (09:57)
[2017-03-18] MEDS: Amantadine HCl 100 mg Capsule PO SCH (09:57)
[2017-03-18] MEDS: levETIRAcetam 500 mg/5 ml Oral Solution PER TUBE SCH ×2 (09:58→20:25)
[2017-03-18] MEDS: Enoxaparin Sodium 40 MG/0.4 ML SYRINGE SC SCH (09:58)
[2017-03-18] MEDS: Chlorhexidine Gluconate 15 ML UDCUP SSP SCH ×2 (09:58→20:24)
[2017-03-18] MEDS: Polyethylene Glycol 3350 17 GM Packet PER TUBE SCH (09:59)
[2017-03-18] MEDS: Bisacodyl 10 MG SUPP PR SCH (09:59)
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
[2017-03-19] MEDS: Acetaminophen 500 MG TAB PO SCH ×3 (05:40→17:49)
[2017-03-19 05:45] LABS: Anion Gap 12 mmol/L (10-20); BUN (Urea Nitrogen) 14 mg/dL (8.9-20.6); Calc. Creatinine Clearance 123 mL/min (70-130); Calcium 9.7 mg/dL (7.8-10.44); Carbon Dioxide 24 mmol/L (22-29); Chloride 99 mmol/L (98-107); Estimated GFR-MDRD Greater than 90; Glucose 104 mg/dL (70-105); Magnesium 1.7 mg/dL (1.6-2.6); Phosphorus 5.8 mg/dL (2.3-4.7); Sodium 131 mmol/L (136-145)
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
[2017-03-19] MEDS: levETIRAcetam 500 mg/5 ml Oral Solution PER TUBE SCH ×2 (09:46→21:36)
[2017-03-19] MEDS: Enoxaparin Sodium 40 MG/0.4 ML SYRINGE SC SCH (09:46)
[2017-03-19] MEDS: Polyethylene Glycol 3350 17 GM Packet PER TUBE SCH (09:47)
[2017-03-19] MEDS: Tamsulosin HCl 0.4 MG CAP PO SCH (09:47)
[2017-03-19] MEDS: Bisacodyl 10 MG SUPP PR SCH (09:47)
[2017-03-19] MEDS: Sodium Chloride 1 GM TAB PO SCH ×2 (09:47→21:37)
[2017-03-19] MEDS: Amantadine HCl 100 mg Capsule PO SCH (09:47)
[2017-03-19] MEDS: Pantoprazole 40 MG GRANULES PACKET PER TUBE SCH (09:47)
[2017-03-19] MEDS: Senokot S 8.6-50 MG TAB PO SCH ×2 (09:48→21:37)
[2017-03-19] MEDS: Chlorhexidine Gluconate 15 ML UDCUP SSP SCH ×2 (10:04→21:36)
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
[2017-03-20] MEDS: Acetaminophen 500 MG TAB PO SCH ×5 (00:30→23:44)
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
[2017-03-20] MEDS: Bisacodyl 10 MG SUPP PR SCH (09:48)
[2017-03-20] MEDS: Polyethylene Glycol 3350 17 GM Packet PER TUBE SCH (09:49)
[2017-03-20] MEDS: Tamsulosin HCl 0.4 MG CAP PO SCH (09:49)
[2017-03-20] MEDS: Chlorhexidine Gluconate 15 ML UDCUP SSP SCH ×2 (09:50→21:29)
[2017-03-20] MEDS: Amantadine HCl 100 mg Capsule PO SCH (09:50)
[2017-03-20] MEDS: Senokot S 8.6-50 MG TAB PO SCH ×2 (09:50→21:31)
[2017-03-20] MEDS: Sodium Chloride 1 GM TAB PO SCH ×2 (09:50→21:30)
[2017-03-20] MEDS: Pantoprazole 40 MG GRANULES PACKET PER TUBE SCH (09:50)
[2017-03-20] MEDS: Enoxaparin Sodium 40 MG/0.4 ML SYRINGE SC SCH (09:50)
[2017-03-20] MEDS: levETIRAcetam 500 mg/5 ml Oral Solution PER TUBE SCH ×2 (09:53→21:29)
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
[2017-03-21 05:32] LABS: #Basophils 0.1 thou/uL (0.0-0.2); #Eosinphils 0.5 thou/uL (0.0-0.7); #Lymphocytes 1.9 thou/uL (1.20-3.40); #Monocytes 0.3 thou/uL (0.11-0.59); #Neutrophils 2.9 thou/uL (1.40-6.50); %Eosinophils 9.3 % (0.0-10.0); %Monocytes 5.6 % (0.0-10.0); %Neutrophils 51.1 % (42.0-75.0); Hemoglobin 9.9 g/dL (14.0-18.0); Mean Corpuscular Hemoglobin 29.3 pg (27.0-31.0); Mean Corpuscular Volume 86.2 fl (80.0-94.0); Mean Platelet Volume 5.4 fL (7.4-10.4); Platelet Count 378 thou/uL (130-400); RBC Distribution Width 14.4 % (11.5-14.5); Red Blood Cell (RBC) Count 3.39 mill/uL (4.70-6.10); White Blood Cell (WBC) Count 5.7 thou/uL (4.8-10.8)
[2017-03-21 05:49] LABS: Anion Gap 11 mmol/L (10-20); BUN (Urea Nitrogen) 14 mg/dL (8.9-20.6); Calc. Creatinine Clearance 116 mL/min (70-130); Calcium 9.6 mg/dL (7.8-10.44); Carbon Dioxide 25 mmol/L (22-29); Chloride 99 mmol/L (98-107); Estimated GFR-MDRD Greater than 90; Glucose 102 mg/dL (70-105); Magnesium 1.7 mg/dL (1.6-2.6); Phosphorus 5.2 mg/dL (2.3-4.7); Potassium 4.2 mmol/L (3.5-5.1); Sodium 131 mmol/L (136-145)
[2017-03-21] MEDS: Acetaminophen 500 MG TAB PO SCH ×3 (05:52→18:16)
[2017-03-21] MEDS: Enoxaparin Sodium 40 MG/0.4 ML SYRINGE SC SCH (09:49)
[2017-03-21] MEDS: Polyethylene Glycol 3350 17 GM Packet PER TUBE SCH (09:49)
[2017-03-21] MEDS: Chlorhexidine Gluconate 15 ML UDCUP SSP SCH ×2 (09:49→20:51)
[2017-03-21] MEDS: Sodium Chloride 1 GM TAB PO SCH (09:50)
[2017-03-21] MEDS: Pantoprazole 40 MG GRANULES PACKET PER TUBE SCH (09:50)
[2017-03-21] MEDS: Amantadine HCl 100 mg Capsule PO SCH (09:50)
[2017-03-21] MEDS: Tamsulosin HCl 0.4 MG CAP PO SCH (09:50)
[2017-03-21] MEDS: Senokot S 8.6-50 MG TAB PO SCH ×2 (09:50→20:51)
[2017-03-21] MEDS: Bisacodyl 10 MG SUPP PR SCH (09:51)
[2017-03-21] MEDS: levETIRAcetam 500 mg/5 ml Oral Solution PER TUBE SCH ×2 (09:51→20:51)
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
[2017-03-21] MEDS: Sevelamer Carbonate 800 MG TAB PO SCH (18:16)
[2017-03-22] MEDS: Acetaminophen 500 MG TAB PO SCH ×5 (00:16→23:38)
[2017-03-22] MEDS: Enoxaparin Sodium 40 MG/0.4 ML SYRINGE SC SCH (08:30)
[2017-03-22] MEDS: Chlorhexidine Gluconate 15 ML UDCUP SSP SCH ×2 (08:31→22:24)
[2017-03-22] MEDS: Sevelamer Carbonate 800 MG TAB PO SCH ×3 (08:31→17:57)
[2017-03-22] MEDS: Polyethylene Glycol 3350 17 GM Packet PER TUBE SCH (08:31)
[2017-03-22] MEDS: Senokot S 8.6-50 MG TAB PO SCH ×2 (08:31→22:24)
[2017-03-22] MEDS: levETIRAcetam 500 mg/5 ml Oral Solution PER TUBE SCH ×2 (08:31→22:24)
[2017-03-22] MEDS: Pantoprazole 40 MG GRANULES PACKET PER TUBE SCH (08:31)
[2017-03-22] MEDS: Amantadine HCl 100 mg Capsule PO SCH (08:31)
[2017-03-22] MEDS: Tamsulosin HCl 0.4 MG CAP PO SCH (08:31)
[2017-03-22] MEDS: Bisacodyl 10 MG SUPP PR SCH (08:53)
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
[2017-03-23] MEDS: Acetaminophen 500 MG TAB PO SCH ×3 (06:43→18:36)
[2017-03-23] MEDS: Pantoprazole 40 MG GRANULES PACKET PER TUBE SCH (09:10)
[2017-03-23] MEDS: levETIRAcetam 500 mg/5 ml Oral Solution PER TUBE SCH ×2 (09:10→22:05)
[2017-03-23] MEDS: Chlorhexidine Gluconate 15 ML UDCUP SSP SCH ×2 (09:10→22:05)
[2017-03-23] MEDS: Tamsulosin HCl 0.4 MG CAP PO SCH (09:10)
[2017-03-23] MEDS: Amantadine HCl 100 mg Capsule PO SCH ×2 (09:10→22:05)
[2017-03-23] MEDS: Enoxaparin Sodium 40 MG/0.4 ML SYRINGE SC SCH (09:10)
[2017-03-23] MEDS: Polyethylene Glycol 3350 17 GM Packet PER TUBE SCH (09:11)
[2017-03-23] MEDS: Sevelamer Carbonate 800 MG TAB PO SCH ×3 (09:11→18:35)
[2017-03-23] MEDS: Bisacodyl 10 MG SUPP PR SCH (09:11)
[2017-03-23] MEDS: Senokot S 8.6-50 MG TAB PO SCH ×2 (09:11→22:06)
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
[2017-03-24] MEDS: Acetaminophen 500 MG TAB PO SCH ×4 (01:19→17:59)
[2017-03-24] MEDS: Polyethylene Glycol 3350 17 GM Packet PER TUBE SCH (09:21)
[2017-03-24] MEDS: Pantoprazole 40 MG GRANULES PACKET PER TUBE SCH (09:21)
[2017-03-24] MEDS: Enoxaparin Sodium 40 MG/0.4 ML SYRINGE SC SCH (09:21)
[2017-03-24] MEDS: Senokot S 8.6-50 MG TAB PO SCH ×2 (09:21→22:17)
[2017-03-24] MEDS: Amantadine HCl 100 mg Capsule PO SCH ×2 (09:21→22:17)
[2017-03-24] MEDS: Tamsulosin HCl 0.4 MG CAP PO SCH (09:21)
[2017-03-24] MEDS: Sevelamer Carbonate 800 MG TAB PO SCH ×3 (09:21→17:59)
[2017-03-24] MEDS: levETIRAcetam 500 mg/5 ml Oral Solution PER TUBE SCH ×2 (09:21→22:16)
[2017-03-24] MEDS: Chlorhexidine Gluconate 15 ML UDCUP SSP SCH ×2 (09:22→22:17)
[2017-03-24] MEDS: Bisacodyl 10 MG SUPP PR SCH (09:22)
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
[2017-03-25] MEDS: Acetaminophen 500 MG TAB PO SCH ×5 (01:13→23:07)
[2017-03-25 05:52] LABS: #Basophils 0.1 thou/uL (0.0-0.2); #Eosinphils 0.6 thou/uL (0.0-0.7); #Monocytes 0.4 thou/uL (0.11-0.59); %Basophils 1.8 % (0.0-1.0); %Eosinophils 11.3 % (0.0-10.0); %Lymphocytes 39.3 % (21.0-51.0); %Monocytes 8.3 % (0.0-10.0); %Neutrophils 39.3 % (42.0-75.0); Mean Corpuscular HGB CONC 34.1 g/dL (32.0-36.0); Mean Corpuscular Hemoglobin 28.6 pg (27.0-31.0); Mean Corpuscular Volume 83.8 fl (80.0-94.0); Mean Platelet Volume 5.7 fL (7.4-10.4); Platelet Count 426 thou/uL (130-400); RBC Distribution Width 14.2 % (11.5-14.5); Red Blood Cell (RBC) Count 3.84 mill/uL (4.70-6.10); White Blood Cell (WBC) Count 5.2 thou/uL (4.8-10.8)
[2017-03-25 06:13] LABS: Anion Gap 13 mmol/L (10-20); BUN (Urea Nitrogen) 14 mg/dL (8.9-20.6); Calc. Creatinine Clearance 114 mL/min (70-130); Calcium 9.8 mg/dL (7.8-10.44); Carbon Dioxide 23 mmol/L (22-29); Chloride 95 mmol/L (98-107); Estimated GFR-MDRD Greater than 90; Glucose 103 mg/dL (70-105); Phosphorus 5.4 mg/dL (2.3-4.7); Potassium 3.8 mmol/L (3.5-5.1); Sodium 127 mmol/L (136-145)
[2017-03-25] MEDS: Enoxaparin Sodium 40 MG/0.4 ML SYRINGE SC SCH (09:37)
[2017-03-25] MEDS: Polyethylene Glycol 3350 17 GM Packet PER TUBE SCH (09:37)
[2017-03-25] MEDS: Sevelamer Carbonate 800 MG TAB PO SCH ×3 (09:37→17:34)
[2017-03-25] MEDS: Senokot S 8.6-50 MG TAB PO SCH ×2 (09:37→21:05)
[2017-03-25] MEDS: Pantoprazole 40 MG GRANULES PACKET PER TUBE SCH (09:37)
[2017-03-25] MEDS: Amantadine HCl 100 mg Capsule PO SCH ×2 (09:37→21:05)
[2017-03-25] MEDS: Tamsulosin HCl 0.4 MG CAP PO SCH (09:37)
[2017-03-25] MEDS: levETIRAcetam 500 mg/5 ml Oral Solution PER TUBE SCH ×2 (09:38→21:05)
[2017-03-25] MEDS: Bisacodyl 10 MG SUPP PR SCH (09:38)
[2017-03-25] MEDS: Chlorhexidine Gluconate 15 ML UDCUP SSP SCH ×2 (13:01→21:05)
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
[2017-03-26] MEDS: Acetaminophen 500 MG TAB PO SCH ×3 (05:54→17:24)
[2017-03-26 07:58] LABS: Anion Gap 14 mmol/L (10-20); BUN (Urea Nitrogen) 14 mg/dL (8.9-20.6); Calc. Creatinine Clearance 120 mL/min (70-130); Calcium 10.2 mg/dL (7.8-10.44); Carbon Dioxide 23 mmol/L (22-29); Chloride 96 mmol/L (98-107); Estimated GFR-MDRD Greater than 90; Glucose 100 mg/dL (70-105); Phosphorus 5.1 mg/dL (2.3-4.7); Potassium 4.2 mmol/L (3.5-5.1); Sodium 129 mmol/L (136-145)
[2017-03-26] MEDS: Senokot S 8.6-50 MG TAB PO SCH ×2 (09:30→22:21)
[2017-03-26] MEDS: Polyethylene Glycol 3350 17 GM Packet PER TUBE SCH (09:30)
[2017-03-26] MEDS: Amantadine HCl 100 mg Capsule PO SCH ×2 (09:30→22:22)
[2017-03-26] MEDS: Sevelamer Carbonate 800 MG TAB PO SCH ×3 (09:30→17:24)
[2017-03-26] MEDS: Tamsulosin HCl 0.4 MG CAP PO SCH (09:30)
[2017-03-26] MEDS: Pantoprazole 40 MG GRANULES PACKET PER TUBE SCH (09:30)
[2017-03-26] MEDS: Bisacodyl 10 MG SUPP PR SCH (09:31)
[2017-03-26] MEDS: Enoxaparin Sodium 40 MG/0.4 ML SYRINGE SC SCH (09:31)
[2017-03-26] MEDS: levETIRAcetam 500 mg/5 ml Oral Solution PER TUBE SCH ×2 (09:31→22:22)
[2017-03-26] MEDS: Chlorhexidine Gluconate 15 ML UDCUP SSP SCH ×2 (09:31→22:22)
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
[2017-03-27] MEDS: Acetaminophen 500 MG TAB PO SCH ×4 (01:13→17:55)
[2017-03-27] MEDS: Amantadine HCl 100 mg Capsule PO SCH ×2 (09:20→20:46)
[2017-03-27] MEDS: Senokot S 8.6-50 MG TAB PO SCH ×2 (09:20→20:46)
[2017-03-27] MEDS: Chlorhexidine Gluconate 15 ML UDCUP SSP SCH ×2 (09:21→20:46)
[2017-03-27] MEDS: Tamsulosin HCl 0.4 MG CAP PO SCH (09:21)
[2017-03-27] MEDS: Polyethylene Glycol 3350 17 GM Packet PER TUBE SCH (09:21)
[2017-03-27] MEDS: Pantoprazole 40 MG GRANULES PACKET PER TUBE SCH (09:21)
[2017-03-27] MEDS: Enoxaparin Sodium 40 MG/0.4 ML SYRINGE SC SCH (09:21)
[2017-03-27] MEDS: Sevelamer Carbonate 800 MG TAB PO SCH ×3 (09:21→17:55)
[2017-03-27] MEDS: levETIRAcetam 500 mg/5 ml Oral Solution PER TUBE SCH ×2 (09:21→20:46)
[2017-03-27] MEDS: Bisacodyl 10 MG SUPP PR SCH (09:32)
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
[2017-03-28] MEDS: Acetaminophen 500 MG TAB PO SCH ×3 (00:44→12:15)
[2017-03-28 06:56] LABS: Anion Gap 14 mmol/L (10-20); BUN (Urea Nitrogen) 17 mg/dL (8.9-20.6); Calc. Creatinine Clearance 113 mL/min (70-130); Calcium 9.8 mg/dL (7.8-10.44); Carbon Dioxide 23 mmol/L (22-29); Chloride 96 mmol/L (98-107); Estimated GFR-MDRD Greater than 90; Glucose 92 mg/dL (70-105); Magnesium 1.8 mg/dL (1.6-2.6); Phosphorus 4.7 mg/dL (2.3-4.7); Potassium 4.1 mmol/L (3.5-5.1); Sodium 129 mmol/L (136-145)
[2017-03-28] MEDS: Amantadine HCl 100 mg Capsule PO SCH (09:10)
[2017-03-28] MEDS: Bisacodyl 10 MG SUPP PR SCH (09:10)
[2017-03-28] MEDS: Enoxaparin Sodium 40 MG/0.4 ML SYRINGE SC SCH (09:11)
[2017-03-28] MEDS: Sevelamer Carbonate 800 MG TAB PO SCH ×2 (09:11→12:15)
[2017-03-28] MEDS: levETIRAcetam 500 mg/5 ml Oral Solution PER TUBE SCH (09:11)
[2017-03-28] MEDS: Pantoprazole 40 MG GRANULES PACKET PER TUBE SCH (09:11)
[2017-03-28] MEDS: Senokot S 8.6-50 MG TAB PO SCH (09:11)
[2017-03-28] MEDS: Tamsulosin HCl 0.4 MG CAP PO SCH (09:11)
[2017-03-28] MEDS: Polyethylene Glycol 3350 17 GM Packet PER TUBE SCH (09:11)
[2017-03-28] MEDS: Chlorhexidine Gluconate 15 ML UDCUP SSP SCH (09:11)
[2017-03-28 12:20] VITALS: TEMP 97.8
[2017-03-28 12:26] VITALS: BP 110/78
== END 2017-03-28 15:15 | disposition home or self-care (01) | DRG 3 ==
LOC: ERS 07:19 → EDBD 07:44 → CCU 07:44 → SURG A 02-24 15:02
PROVIDERS: ADMIT Surgery; ATTEND Surgery
PROC: 5A1955Z Respiratory Ventilation, Greater than 96 Consecutive Hours (ICD-10-PCS; 2017-01-31)
PROC: 0BH17EZ Insertion of Endotracheal Airway into Trachea, Via Natural or Artificial Opening (ICD-10-PCS; 2017-01-31)
PROC: 0JQ10ZZ Repair Face Subcutaneous Tissue and Fascia, Open Approach (ICD-10-PCS; 2017-02-01)
PROC: 0WQ3XZZ Repair Oral Cavity and Throat, External Approach (ICD-10-PCS; 2017-02-01)
PROC: 0NSBXZZ Reposition Nasal Bone, External Approach (ICD-10-PCS; 2017-02-01)
PROC: 0B110F4 Bypass Trachea to Cutaneous with Tracheostomy Device, Open Approach (ICD-10-PCS; principal; 2017-02-06)
PROC: 0DH63UZ Insertion of Feeding Device into Stomach, Percutaneous Approach (ICD-10-PCS; 2017-02-06)
PROC: 30233N1 Transfusion of Nonautologous Red Blood Cells into Peripheral Vein, Percutaneous Approach (ICD-10-PCS; 2017-02-09)
PROC: 06HY33Z Insertion of Infusion Device into Lower Vein, Percutaneous Approach (ICD-10-PCS; 2017-02-11)
PROC: 5A12012 Performance of Cardiac Output, Single, Manual (ICD-10-PCS; 2017-02-11)
PROC: 05HM33Z Insertion of Infusion Device into Right Internal Jugular Vein, Percutaneous Approach (ICD-10-PCS; 2017-02-12)
PROC: 3E0436Z Introduction of Nutritional Substance into Central Vein, Percutaneous Approach (ICD-10-PCS; 2017-02-12)
PROC: 0WJP0ZZ Inspection of Gastrointestinal Tract, Open Approach (ICD-10-PCS; 2017-02-12)
PROC: 009U3ZZ Drainage of Spinal Canal, Percutaneous Approach (ICD-10-PCS; 2017-03-03)
PROC: 00160J6 Bypass Cerebral Ventricle to Peritoneal Cavity with Synthetic Substitute, Open Approach (ICD-10-PCS; 2017-03-06)
PROC: 0W9F40Z Drainage of Abdominal Wall with Drainage Device, Percutaneous Endoscopic Approach (ICD-10-PCS; 2017-03-06)
DX: S06.6X9A Traumatic subarachnoid hemorrhage with loss of consciousness of unspecified duration, initial encounter (principal); A41.02 Sepsis due to Methicillin resistant Staphylococcus aureus; R65.21 Severe sepsis with septic shock; G93.41 Metabolic encephalopathy; J18.9 Pneumonia, unspecified organism; G91.3 Post-traumatic hydrocephalus, unspecified; E46 Unspecified protein-calorie malnutrition; J96.01 Acute respiratory failure with hypoxia; S12.000A Unspecified displaced fracture of first cervical vertebra, initial encounter for closed fracture; J90 Pleural effusion, not elsewhere classified; S27.329A Contusion of lung, unspecified, initial encounter; N17.9 Acute kidney failure, unspecified; K56.7 Ileus, unspecified; J98.11 Atelectasis; E87.0 Hyperosmolality and hypernatremia; E87.1 Hypo-osmolality and hyponatremia; N20.1 Calculus of ureter; H49.02 Third [oculomotor] nerve palsy, left eye; S06.339A Contusion and laceration of cerebrum, unspecified, with loss of consciousness of unspecified duration, initial encounter; S06.5X9A Traumatic subdural hemorrhage with loss of consciousness of unspecified duration, initial encounter; S01.01XA Laceration without foreign body of scalp, initial encounter; S50.311A Abrasion of right elbow, initial encounter; S02.109A Fracture of base of skull, unspecified side, initial encounter for closed fracture; E83.39 Other disorders of phosphorus metabolism; S02.30XA Fracture of orbital floor, unspecified side, initial encounter for closed fracture; S02.19XA Other fracture of base of skull, initial encounter for closed fracture; N31.9 Neuromuscular dysfunction of bladder, unspecified; S01.412A Laceration without foreign body of left cheek and temporomandibular area, initial encounter; V43.62XA Car passenger injured in collision with other type car in traffic accident, initial encounter; S80.212A Abrasion, left knee, initial encounter; N39.498 Other specified urinary incontinence; K59.00 Constipation, unspecified; R31.0 Gross hematuria; R40.2432 Glasgow coma scale score 3-8, at arrival to emergency department; E87.6 Hypokalemia; E83.42 Hypomagnesemia; Y95 Nosocomial condition; Z78.1 Physical restraint status; G93.89 Other specified disorders of brain; D64.9 Anemia, unspecified; S02.2XXA Fracture of nasal bones, initial encounter for closed fracture; H57.04 Mydriasis; Z68.23 Body mass index [BMI] 23.0-23.9, adult
CPT/HCPCS: 31500; 36415; 36416; 36430; 51702; 62270; 62272; 70450; 70486; 71010; 71260; 71275; 72125; 72141; 74000; 74020; 74176; 74177; 80048; 80053; 80202; 81001; 81003; 81015; 82271; 82805; 82945; 83605; 83615; 83690; 83735; 84100; 84157; 85007; 85014; 85018; 85025; 85027; 85060; 85610; 85730; 86850; 86900; 86901; 87040; 87070; 87077; 87086; 87149; 87186; 87205; 89051; 89220; 90471; 90715; 92950; 93970; 94002; 94003; 94640; 96374; 96375; A4216; A4217; A4218; C9113; G0390; G8978-GP-CL; G8978-GP-CN; G8979-GP-CJ; G8979-GP-CK; G8979-GP-CM; G8987-GO-CM; G8988-GO-CK; G8996-GN-CK; G8996-GN-CL; G8996-GN-CM; G8996-GN-CN; G8997-GN-CK; G8997-GN-CL; G8997-GN-CM; G8998-GN-CI; J0131; J0690; J0692; J1100; J1650; J1815; J1940; J1953; J2001; J2250; J2270; J2405; J2543; J2550; J2704; J2997; J3010; J3370; J3475; J3480; J3490; J7050; J7120; J7620; P9016; P9045; S0028